=== PATIENT | male | born 1955 | race Caucasian/White ===

== ENCOUNTER → 2023-05-12 | Outpatient (CLI) | payer MEDICARE ==
[2023-05-12 09:52] LABS: African American GFR (CKD) >90 (>60 ml/min/1.73 sqM); Blood Urea Nitrogen 20 mg/dL (9-20); Non-African American GFR(CKD) 84 (>60 ml/min/1.73 sqM)
--- NOTE | 2023-05-12 10:46 | CT ---
EXAMINATION TYPE: CT urogram wo/w con CT DLP: 1679.9 mGycm, Automated exposure control for dose reduction was used. DATE OF EXAM: 05/12/2023 10:36 AM COMPARISON: None CLINICAL INDICATION:Male, 68 years old with history of R31.0 gross hematuria; PHH, Gross hematuria TECHNIQUE: Urogram of the abdomen and pelvis was performed before and after the administration of 100 cc of IV c ontrast Isovue 300 contrast. Delayed imaging was performed. Coronal and sagittal reformats were perfo rmed. One or more CT dose reduction strategies were utilized during this examination. 2D and 3D recon structions are performed to assist visualization of the urinary tract on a separate workstation. FINDINGS: GENITOURINARY: RIGHT KIDNEY AND URETER: Nonobstructive right renal calculus which may be vascular. No hydronephrosis or hydroureter. No renal mass or other lesions. No urothelial lesions: no filling defect, dilation, stricture or wall thickening. LEFT KIDNEY AND URETER: No calculi. No hydronephrosis or hydroureter. No solid enhancing lesion. 1.6 cm left superior pole cyst No urothelial lesions: no filling defect, dilation, stricture or wall thic kening. URINARY BLADDER: There is a large soft tissue filling defect emanating from the right lateral wall me asuring 4.7 x 3.7 cm (series 13, image 66). REPRODUCTIVE: Unremarkable. ABDOMEN LIVER: Unremarkable. GALLBLADDER AND BILE DUCTS: Unremarkable PANCREAS: Unremarkable. SPLEEN: Unremarkable. ADRENAL GLANDS: Unremarkable. STOMACH AND BOWEL: Distal colonic diverticulosis without evidence for acute diverticulitis. There is some hyperdense foci within the sigmoid colon likely representing surgical clips. No focal bowel wall thickening or stranding inflammatory changes. The appendix is within normal limits. No evidence of b owel obstruction. PERITONEUM: No evidence of pneumoperitoneum, free fluid, or adenopathy. VASCULATURE: Ectasia of the infrarenal abdominal aorta measuring up to 2.9 cm. 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 MUSCULOSKELETAL: Multilevel degenerative changes are present throughout the thoracolumbar spine. No a cute osseous abnormality. No aggressive osseous lesion. SOFT TISSUE/ABDOMINAL WALL: Unremarkable. LOWER CHEST: The visualized lung bases are clear. Mitral annulus and aortic valvular calcifications n oted.. IMPRESSION: 1. Urinary bladder mass measuring up to 4.7 cm. This is considered malignancy until proven otherwise . Direct visualization is recommended. 2. No CT evidence for metastatic disease within the abdomen pelvis. No suspicious renal lesion. 3. 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 4. Colonic diverticulosis without evidence for acute diverticulitis. A Yellow level critical message alert has been initiated for Toby Guo MD via the [employer] Critical Results System on 05/12/2023 10:43 AM. This message alert has been sent to Toby Guo MD via the preferences provided by the clinician for the receipt of Radiology Critical Findings. Mess age ID [id number].
== END | disposition home or self-care (01) ==
LOC: RADCTMAIN 08:57
PROVIDERS: ATTEND Urology
DX: N32.89 Other specified disorders of bladder (principal); K57.30 Diverticulosis of large intestine without perforation or abscess without bleeding; I77.811 Abdominal aortic ectasia; R31.0 Gross hematuria
CPT/HCPCS: 82565; 84520; 74178; 36415; 74400; Q9967

== ENCOUNTER 2024-03-14 07:16 | Day surgery (SDC) | payer MEDICARE ==
[~2024-03-14 07:16] MED LIST: ALPRAZolam 0.25 MG TAB PO PRN; ALPRAZolam 0.5 MG TAB PO PRN; HEPARIN SODIUM,PORCINE (1 ML) 2,500 UNIT in SODIUM CHLORIDE 0.9% 250 ML IRRIGATION PRN; HEPARIN SODIUM,PORCINE 10,000 UNIT in SODIUM CHLORIDE 0.9% 1,000 ML IRRIGATION PRN; NITROGLYCERIN SL TABS 0.4 MG TAB SUBLINGUAL PRN
[2024-03-14] MEDS: ASPIRIN 325 MG TAB PO ONE (07:37)
[2024-03-14] MEDS: SODIUM CHLORIDE 0.9% 1,000 ML in EMPTY BAG 1 BAG IV SCH (07:39)
[2024-03-14] MEDS: IV FLUID CONTINUATION 1,000 ML IV ONE (07:40)
[2024-03-14 07:54] LABS: Glucose,Whole Blood 146 mg/dL (70-110)
[2024-03-14 07:59] LABS: Basophils # (A) 0.1 k/uL (0-0.2); Basophils % (A) 1 %; Eosinophils # (A) 0.2 k/uL (0-0.7); Eosinophils % (A) 3 %; HCT 48.9 % (39.0-53.0); HGB 15.9 gm/dL (13.0-17.5); Lymphocytes # (A) 1.5 k/uL (1.0-4.8); Lymphocytes % (A) 22 %; MCH 29.6 pg (25.0-35.0); MCHC 32.5 g/dL (31.0-37.0); Mean Platelet Volume 8.5; Monocytes # (A) 0.6 k/uL (0-1.0); Monocytes % (A) 9 %; Neutrophils # (A) 4.3 k/uL (1.3-7.7); Neutrophils % (A) 62 %; Platelet Count 249 k/uL (150-450); RBC 5.38 m/uL (4.30-5.90); RDW 14.1 % (11.5-15.5); WBC 6.8 k/uL (3.8-10.6)
[2024-03-14 08:33] LABS: African American GFR (CKD) 83 (>60 ml/min/1.73 sqM); Anion Gap 9 mmol/L; Blood Urea Nitrogen 21 mg/dL (9-20); Calcium 8.9 mg/dL (8.4-10.2); Carbon Dioxide 21 mmol/L (22-30); Chloride 107 mmol/L (98-107); Glucose 150 mg/dL (74-99); Non-African American GFR(CKD) 72 (>60 ml/min/1.73 sqM); Potassium 4.3 mmol/L (3.5-5.1); Sodium 137 mmol/L (137-145)
[2024-03-14] MEDS ORDERED: VERAPAMIL 2.5 MG/ML 2 ML AMP ONE (08:40)
[2024-03-14] MEDS ORDERED: fentaNYL (PF) 50 MCG/ML 2 ML AMP ONE (08:40)
[2024-03-14] MEDS ORDERED: LIDOCAINE 1% INJ 10MG/ML (20 ML MDV) ONE (08:40)
[2024-03-14] MEDS ORDERED: HEPARIN SODIUM 1,000 UN/ML (10ML VL) ONE (08:40)
[2024-03-14 08:46] VITALS: RESP 16; TEMP 98.1
[2024-03-14] MEDS: fentaNYL (PF) 50 MCG/ML 2 ML AMP IVP ONE (08:59)
[2024-03-14] MEDS: MIDAZOLAM 2 MG/2 ML VIAL IVP ONE (08:59)
[2024-03-14] MEDS: LIDOCAINE 2% (PF) 20 MG/ML 2 ML VIAL SQ ONE (08:59)
[2024-03-14] MEDS: VERAPAMIL 2.5 MG/ML 4 ML VIAL INTRAARTER ONE (09:01)
[2024-03-14] MEDS: HEPARIN SODIUM 1,000 UN/ML (10ML VL) IVP ONE (09:04)
[2024-03-14] MEDS: IOPAMIDOL-370 200ML BTL INTRATHECA ONE (09:23)
--- NOTE | 2024-03-14 10:16 | CC ---
CARDIAC CATHETERIZATION REPORT INDICATION: Aortic stenosis. The patient is currently scheduled for an aortic valve replacement at [facility], who requested a left heart catheterization to be done locally. The patient understands risks, benefits, and alternatives and agreed to proceed with the procedure. PROCEDURE NOTE: After obtaining informed consent, left heart catheterization, coronary angiogram, and aortogram were performed via the right radial artery using standard Mak catheters. The patient tolerated the procedure well without any obvious immediate complications. The patient received moderate conscious sedation. Total sedation time was 26 minutes. A TR band will be used for hemostasis at the end of the procedure. FINDINGS: 1. Hemodynamics: Central aortic pressure is 128/68 mm. 2. Aortogram: Aortogram showed that the ascending aorta is not aneurysmally dilated. There is 2 to 3+ aortic regurgitation noted. 3. Angiographic Data: a.Right coronary artery: Right coronary artery is a large dominant vessel that shows a moderate area of stenosis in the proximal portion that is 50% stenosed. b.Left main coronary artery is a normal-sized vessel and is free of stenosis. Divides into left anterior descending coronary artery and circumflex coronary artery. c.Circumflex coronary artery and its branches are free of significant stenosis. LAD gives off a fair caliber diagonal branch that has a 70% ostial stenosis. CONCLUSION: Two-vessel coronary artery disease as described above in a patient who is to undergo aortic valve replacement. We will forward the angiographic data to the Cardiothoracic Surgeon at [facility] to decide on aortic valve replacement with or without surgical revascularization of the diagonal branch and the right coronary artery. MMODL / IJN: [id number] /
[2024-03-14 11:38] VITALS: BP 133/73; PULSE 73
== END 2024-03-14 13:26 | disposition home or self-care (01) ==
LOC: CATHCVL 07:16
PROVIDERS: ATTEND Internal Medicine Cardiovascular Disease
DX: I35.0 Nonrheumatic aortic (valve) stenosis (principal); I25.10 Atherosclerotic heart disease of native coronary artery without angina pectoris; E78.5 Hyperlipidemia, unspecified; Z87.891 Personal history of nicotine dependence; Z79.899 Other long term (current) drug therapy
CPT/HCPCS: 93458; 93567; 80048; 85025; J2250; J3010; J1644; J2001; Q9967

== ENCOUNTER 2024-12-13 07:10 | Inpatient (IN) | payer MEDICARE ==
--- NOTE | 2024-12-13 07:26 | ED ---
General Adult HPI - General Chief complaint: Chest Pain Stated complaint: chest pain Time Seen by Provider: 12/13/24 07:12 Source: patient, RN notes reviewed Mode of arrival: ambulatory Limitations: no limitations - History of Present Illness Initial comments: Patient is a 69-year-old male present to the emergency department with concern with chest discomfort. Onset of symptoms was middle of the night. Discomfort is somewhat severe rated 8 or 9/10. Discomfort is difficult to describe. Discomfort is lower chest. Patient states there is also some discomfort of the back and upper abdomen. No history of similar symptoms previously. No dyspnea. Patient has had nausea and did vomit a couple times. No diaphoresis. No history of any previous cardiac disease. - Related Data Home Medications Medication Instructions Recorded Confirmed Atorvastatin [Lipitor] 20 mg PO HS 12/20/22 12/13/24 Multivit,Calc,Min/FA/K1/Lycop 1 tab PO DAILY 12/20/22 12/13/24 [One-A-Day Men's Complete Tab] metFORMIN HCL 500 mg PO BID 12/20/22 12/13/24 Aspirin EC [Ecotrin Low Dose] 81 mg PO DAILY 12/13/24 12/13/24 Metoprolol Succinate (ER) [Toprol 50 mg PO DAILY 12/13/24 12/13/24 Xl] Semaglutide [Ozempic] 0.25 mg SQ WE 12/13/24 12/13/24 Allergies Allergy/AdvReac Type Severity Reaction Status Date / Time No Known Allergies Allergy Verified 12/13/24 08:27 Review of Systems ROS Statement: Those systems with pertinent positive or pertinent negative responses have been documented in the HPI. ROS Other: All systems not noted in ROS Statement are negative. Constitutional: Denies: fever Eyes: Denies: eye pain ENT: Denies: ear pain Respiratory: Denies: dyspnea Cardiovascular: Reports: chest pain Musculoskeletal: Reports: back pain Past Medical History Past Medical History: Cancer, Diabetes Mellitus, Hyperlipidemia Additional Past Medical History / Comment(s): hx melanoma on face, tingling in feet, covid 09/2021, will need aortic valve done soon, will be done @ [facility], recent hx. bladder cancer-had surg. & chemo instillation into bladder History of Any Multi-Drug Resistant Organisms: None Reported Additional Past Surgical History / Comment(s): colonoscopy, melanoma removed, bladder surg. to remove cancer Past Anesthesia/Blood Transfusion Reactions: Previous Problems w/ Anesthesia Additional Past Anesthesia/Blood Transfusion Reaction / Comment(s): woke up swinging after bladder surg. recently Past Psychological History: No Psychological Hx Reported Smoking Status: Former smoker, Vaper Past Alcohol Use History: None Reported Past Drug Use History: None Reported - Past Family History Mother Family Medical History: Congestive Heart Failure (CHF) Father Family Medical History: Cancer Additional Family Medical History / Comment(s): esophagus General Exam Limitations: no limitations General appearance: alert, in no apparent distress Head exam: Present: normocephalic Eye exam: Present: normal appearance Neck exam: Present: normal inspection Respiratory exam: Present: normal lung sounds bilaterally. Absent: chest wall tenderness Cardiovascular Exam: Present: regular rate, normal rhythm, normal heart sounds Expanded Peripheral pulses: 2+: Radial (R), Radial (L), Dorsalis Pedis (R), Dorsalis Pedis (L) GI/Abdominal exam: Present: soft. Absent: distended, tenderness, guarding Extremities exam: Present: normal inspection. Absent: pedal edema, calf tenderness Back exam: Present: normal inspection. Absent: tenderness Neurological exam: Present: alert Psychiatric exam: Present: normal affect, normal mood Skin exam: Present: normal color Course Vital Signs 12/13/24 12/13/24 12/13/24 07:11 07:30 08:10 Temperature 97.3 F L Pulse Rate 69 89 75 Respiratory 20 19 19 Rate Blood Pressure 151/79 111/63 116/48 O2 Sat by Pulse 99 95 97 Oximetry 12/13/24 08:30 Temperature Pulse Rate 71 Respiratory 19 Rate Blood Pressure 102/66 O2 Sat by Pulse 97 Oximetry EKG Findings - EKG Results: EKG: interpreted by ERMD, sinus rhythm, normal axis, normal QRS, normal ST/T Medical Decision Making - Medical Decision Making Was pt. sent in by a medical professional or institution (, PA, SIGN LANGUAGE TRANSLATOR, urgent care, hospital, or fdc...) When possible be specific @ -No Did you speak to anyone other than the patient for history (EMS, parent, family, police, friend...)? What history was obtained from this source @ -No Did you review nursing and triage notes (agree or disagree)? Why? @ -I reviewed and agree with nursing and triage notes Were old charts reviewed (outside hosp., previous admission, EMS record, old EKG, old radiological studies, urgent care reports/EKG's, fdc records)? Report findings @ -No old charts were reviewed Differential Diagnosis (chest pain, altered mental status, abdominal pain women, abdominal pain men, vaginal bleeding, weakness, fever, dyspnea, syncope, headache, dizziness, GI bleed, back pain, seizure, CVA, palpatations, mental hea lth, musculoskeletal)? @ -Differential Chest Pain: Stable Angina, Unstable Angina, STEMI, NSTEMI Aortic Dissection, Pneumothorax, Musculoskeletal, Esophageal Spasm GERD, Cholecystitis, Pancreatitis, Zoster, this is not meant to be an all-inclusive list. EKG interpreted by me (3pts min.). @ -As above X-rays interpreted by me (1pt min.). @ -Chest and abdominal x-ray do not reveal acute abnormality. Chest x-ray does not show previous valve surgery CT interpreted by me (1pt min.). @ -None done U/S interpreted by me (1pt. min.). @ -None done What testing was considered but not performed or refused? (CT, X-rays, U/S, labs)? Why? @ -Ultrasound gallbladder ordered. D-dimer ordered and still pending What meds were considered but not given or refused? Why? @ -None Did you discuss the management of the patient with other professionals (professionals i.e. , PA, SIGN LANGUAGE TRANSLATOR, lab, RT, psych nurse, social media assistant, driver supervisor, teacher, environmental health officer, cyanide case hardener)? Give summary @ -Dr. Rodriguez to admit his patient, he states he will see his patient today. Was smoking cessation discussed for >3mins.? @ -No Was critical care preformed (if so, how long)? @ -No Were there social determinants of health that impacted care today? How? (Homelessness, low income, unemployed, alcoholism, drug addiction, transportation, low edu. Level, literacy, decrease access to med. care, correction, rehab)? @ -No Was there de-escalation of care discussed even if they declined (Discuss DNR or withdrawal of care, Hospice)? DNR status @ -No What co-morbidities impacted this encounter? (DM, HTN, Smoking, COPD, CAD, Ca ncer, CVA, ARF, Chemo, Hep., AIDS, mental health diagnosis, sleep apnea, morbid obesity)? @ -History of diabetes, history of heart valve disease Was patient admitted / discharged? Hospital course, mention meds given and route, prescriptions, significant lab abnormalities, going to OR and other pert inent info. @ -Patient presents with chest discomfort. No improvement with aspirin and nitroglycerin. Nausea improved with Zofran. Patient still having discomfort. Patient will be admitted for further evaluation. Ultrasound of the gallbladder ordered. Admission orders written. Patient reevaluated and updated. Undiagnosed new problem with uncertain prognosis? @ -No Drug Therapy requiring intensive monitoring for toxicity (Heparin, Nitro, Insulin, Cardizem)? @ -No Were any procedures done? @ -No Diagnosis/symptom? @ -Chest pain Acute, or Chronic, or Acute on Chronic? @ -Acute Uncomplicated (without systemic symptoms) or Complicated (systemic symptoms)? @ -Default Side effects of treatment? @ -No Exacerbation, Progression, or Severe Exacerbation? @ -No Poses a threat to life or bodily function? How? (Chest pain, [place], [place], pneumonia, PE, COPD, DKA, ARF, appy, cholecystitis, CVA, Diverticulitis, Homicidal, Suicidal, threat to staff... and all critical care pts) @ -Threat to cardiac function - Lab Data Result diagrams: 12/13/24 07:40 12/13/24 07:40 Lab Results 12/13/24 12/13/24 12/13/24 Range/Units 07:40 07:40 07:40 WBC 9.4 (3.8-10.6) k/uL RBC 5.21 (4.30-5.90) m/uL Hgb 16.1 (13.0-17.5) gm/dL Hct 48.4 (39.0-53.0) % MCV 92.9 (80.0-100.0) fL MCH 31.0 (25.0-35.0) pg MCHC 33.4 (31.0-37.0) g/dL RDW 13.3 (11.5-15.5) % Plt Count 220 (150-450) k/uL MPV 8.2 Neutrophils % 83 % Lymphocytes % 11 % Monocytes % 4 % Eosinophils % 1 % Basophils % 1 % Neutrophils # 7.8 H (1.3-7.7) k/uL Lymphocytes # 1.0 (1.0-4.8) k/uL Monocytes # 0.3 (0-1.0) k/uL Eosinophils # 0.1 (0-0.7) k/uL Basophils # 0.1 (0-0.2) k/uL Sodium 136 L (137-145) mmol/L Potassium 4.4 (3.5-5.1) mmol/L Chloride 101 (98-107) mmol/L Carbon Dioxide 20 L (22-30) mmol/L Anion Gap 15 mmol/L BUN 23 H (9-20) mg/dL Creatinine 1.20 (0.66-1.25) mg/dL Est GFR (CKD-EPI)AfAm 71 (>60 ml/min/1.73 sqM) Est GFR (CKD-EPI)NonAf 62 (>60 ml/min/1.73 sqM) Glucose 210 H (74-99) mg/dL Calcium 9.3 (8.4-10.2) mg/dL Magnesium 2.1 (1.6-2.3) mg/dL Total Bilirubin 0.8 (0.2-1.3) mg/dL AST 30 (17-59) U/L ALT 44 (4-49) U/L Alkaline Phosphatase 100 (38-126) U/L Troponin I <0.012 (0.000-0.034) ng/mL Total Protein 8.3 H (6.3-8.2) g/dL Albumin 4.9 (3.5-5.0) g/dL Amylase 44 (30-110) U/L Lipase 48 (23-300) U/L Disposition Clinical Impression: Chest pain Disposition: ADMITTED IP TO THIS HOSP Is patient prescribed a controlled substance at d/c from ED?: No Referrals: Wang Rodriguez MD [Primary Care Provider] - 1-2 days Time of Disposition: 08:36
[2024-12-13] MEDS: ASPIRIN 81 MG PO STA (07:42)
[2024-12-13] MEDS: ONDANSETRON 4 MG/2 ML VIAL IVP STA (07:43)
[2024-12-13] MEDS: NITROGLYCERIN SL TABS 0.4 MG TAB SUBLINGUAL STA ×3 (07:45→08:32)
[2024-12-13 07:53] LABS: Basophils # (A) 0.1 k/uL (0-0.2); Basophils % (A) 1 %; Eosinophils # (A) 0.1 k/uL (0-0.7); Eosinophils % (A) 1 %; HCT 48.4 % (39.0-53.0); HGB 16.1 gm/dL (13.0-17.5); Lymphocytes % (A) 11 %; MCHC 33.4 g/dL (31.0-37.0); MCV 92.9 fL (80.0-100.0); Mean Platelet Volume 8.2; Monocytes # (A) 0.3 k/uL (0-1.0); Monocytes % (A) 4 %; Neutrophils # (A) 7.8 k/uL (1.3-7.7); Neutrophils % (A) 83 %; Platelet Count 220 k/uL (150-450); RBC 5.21 m/uL (4.30-5.90); RDW 13.3 % (11.5-15.5); WBC 9.4 k/uL (3.8-10.6)
[2024-12-13 08:11] LABS: ALT 44 U/L (4-49); AST 30 U/L (17-59); African American GFR (CKD) 71 (>60 ml/min/1.73 sqM); Albumin 4.9 g/dL (3.5-5.0); Alkaline Phosphatase 100 U/L (38-126); Amylase 44 U/L (30-110); Anion Gap 15 mmol/L; Blood Urea Nitrogen 23 mg/dL (9-20); Calcium 9.3 mg/dL (8.4-10.2); Carbon Dioxide 20 mmol/L (22-30); Chloride 101 mmol/L (98-107); Glucose 210 mg/dL (74-99); Lipase 48 U/L (23-300); Magnesium 2.1 mg/dL (1.6-2.3); Non-African American GFR(CKD) 62 (>60 ml/min/1.73 sqM); Potassium 4.4 mmol/L (3.5-5.1); Sodium 136 mmol/L (137-145); Total Bilirubin 0.8 mg/dL (0.2-1.3); Total Protein 8.3 g/dL (6.3-8.2)
[2024-12-13 08:22] LABS: INR 1.1 (<1.2); Partial Thromboplastin Time 22.8 sec (22.0-30.0); Prothrombin Time 11.7 sec (10.0-12.5)
--- NOTE | 2024-12-13 08:23 | XR ---
EXAMINATION TYPE: XR chest 2V DATE OF EXAM: 12/13/2024 8:17 AM COMPARISON: None TECHNIQUE: XR chest 2V Frontal and lateral views of the chest. CLINICAL INDICATION:Male, 69 years old with history of Chest Pain; FINDINGS: Lungs/Pleura: There is no evidence of pleural effusion, focal consolidation, or pneumothorax. Pulmonary vascularity: Unremarkable. Heart/mediastinum: Cardiomediastinal silhouette is unremarkable. Atherosclerotic calcifications are seen in the aorta. Cardiac valvular prosthesis. Musculoskeletal: No acute osseous pathology. Midline sternotomy wires are noted. IMPRESSION: No acute cardiopulmonary disease/process. [facility], , 12/13/2024 8:21 AM
--- NOTE | 2024-12-13 08:24 | XR ---
EXAMINATION TYPE: XR abdomen 1V DATE OF EXAM: 12/13/2024 COMPARISON: CT urogram 05/12/2023 HISTORY: Pain TECHNIQUE: Single upright KUB image of the abdomen is obtained FINDINGS: Small bowel demonstrates no evidence for dilatation or air fluid levels. Gas and fecal material is seen in non-distended colon. No convincing evidence for pneumoperitoneum. No unusual calcifications. The lung bases are clear. No acute osseous abnormality. Sternotomy wires. IMPRESSION: Overall nonobstructive bowel gas pattern. [facility], , 12/13/2024 8:22 AM
[2024-12-13] MEDS: MORPHINE SULFATE 4 MG/ML SYRINGE IVP STA ×2 (08:33→11:21)
[2024-12-13] MEDS: FAMOTIDINE 20 MG/2 ML VIAL IV STA (08:33)
[2024-12-13] MEDS ORDERED: NITROGLYCERIN SL TABS 0.4 MG TAB SUBLINGUAL PRN (08:36)
--- NOTE | 2024-12-13 09:13 | US ---
EXAMINATION TYPE: US gallbladder DATE OF EXAM: 12/13/2024 COMPARISON: Abdominal radiograph 12/13/2024, CT angiogram 05/12/2023 CLINICAL INDICATION: Male, 69 years old with history of pain; N/V. TECHNIQUE: Grayscale and color Doppler imaging of the right upper quadrant was performed. FINDINGS: EXAM MEASUREMENTS: Liver Length: 16.6 cm Gallbladder Wall: 0.1 cm CBD: 0.4 cm Right Kidney: 12.1 x 5.1 x 5.5 cm Pancreas: Tail obscured by overlying bowel gas Liver: Increased attenuation, decreased visualization of vessels suggestive of fatty infiltrate. Ec hogenic in appearance. Gallbladder: Enlarged in size. Two echogenic foci seen with shadow with largest = 1.0 cm. Evidence for sonographic Bray's sign: neg CBD: wnl Right Kidney: No hydronephrosis or masses seen The visualized portions of the pancreas unremarkable. The liver demonstrates diffusely increased echo genicity which limits evaluation for focal small masses. No gross evidence of mass. No surface nodula rity. The gallbladder is distended with 2 calculi within the neck. No wall thickening or surrounding fluid. Negative sonographic Bray's sign. Common bile duct is within normal limits. Right kidney dem onstrates no hydronephrosis, shadowing calculus or solid mass. IMPRESSION: 1. Cholelithiasis without ultrasound evidence for acute cholecystitis. 2. Hepatic steatosis. [facility], , 12/13/2024 9:10 AM
[2024-12-13] MEDS: NITROGLYCERIN OINT 1 INCH/GM PACKET TOPICAL SCH (09:51)
[2024-12-13] MEDS: metFORMIN 500 MG TAB PO SCH (09:51)
[2024-12-13] MEDS: MULTIVITAMINS, THERA 1 EACH TAB PO SCH (09:51)
[2024-12-13] MEDS: METOPROLOL SUCCINATE (ER) 50 MG TAB.ER.24H PO SCH (09:51)
--- NOTE | 2024-12-13 10:33 | CT ---
EXAMINATION TYPE: CT angio thor/abd CT DLP: 1513.3 mGycm, Automated exposure control for dose reduction was used. DATE OF EXAM: 12/13/2024 10:19 AM COMPARISON: CT urogram 05/12/2023, chest and abdominal radiographs 12/13/2024, gallbladder ultrasound . CLINICAL INDICATION:Male, 69 years old with history of cp, abp; PHH, chest and abd pain TECHNIQUE: Dissection protocol: Multiple axial CT images of the chest and abdomen were obtained prior and to the administration of IV contrast. 3-D reformats and maximum intensity projection format were performed on a separate workstation. Then the abdomen was scanned after administration of 100 cc of Isovue 370 IV contrast. FINDINGS: ARTERIAL VASCULATURE: Mild atherosclerotic calcification of the aorta and its branches. Conventional three-vessel aortic arch. Great arch vessels are patent with normal course and caliber. No evidence f or thoracic aneurysm. No evidence for intramural hematoma or dissection. No abdominal aortic aneurysm . Ectasia of the infrarenal distal abdominal aorta measuring up to 2.9 cm. The SMA and celiac axis ar e widely patent. There are 2 right renal arteries which are widely patent with mild atherosclerotic c alcification at its origin. The single left main renal artery is widely patent. The ISIDRO is widely pat ent. Bilateral fusiform common iliac artery aneurysms with the right measuring 2.5 cm and the left me asuring 2.2 cm. Mild to moderate atherosclerotic plaque within the bilateral common iliac arteries ex tending into their external and internal iliac arteries. PULMONARY ARTERIAL VASCULATURE: Normal caliber. No evidence of filling defect to suggest pulmonary em bolus. Lungs/pleura: No pleural effusion, pneumothorax, focal consolidation. Medial right middle lobe linear atelectasis. No suspicious pulmonary nodule or mass. Heart: Normal size. Post surgical changes from aortic valvular replacement. Dense mitral annulus calc ifications. Small coronary calcifications. Mediastinum: No gross evidence of adenopathy. Lower Neck: No significant findings. Soft tissues: Bilateral gynecomastia. Abdomen: Liver: Diffusely hypoattenuating. No focal lesion. Gallbladder and Bile ducts: Distended gallbladder without surrounding inflammatory changes. No biliar y ductal dilatation. Pancreas: Unremarkable. Spleen: Unremarkable. Adrenal glands: Unremarkable. Kidneys and Ureters: No hydronephrosis or renal calculi. The kidneys enhance symmetrically. Minimal b ilateral perinephric fat stranding. Left renal cyst measuring 1.4 cm. Stomach and Bowel: Small hiatal hernia. No focal bowel wall thickening or surrounding inflammatory ch anges. Distal colonic diverticulosis without visualized acute diverticulitis. The appendix is within normal limits. No evidence of bowel obstruction. Peritoneum: No evidence of pneumoperitoneum, free fluid, or adenopathy. Abdominal wall/soft tissues: Unremarkable. Musculoskeletal: The osseous structures appear intact. Sternotomy wires. Multilevel degenerative disc disease of the thoracolumbar spine. Most pronounced involving the lumbar spine. IMPRESSION: 1. No evidence for aortic dissection. 2. Stable ectasia of the infrarenal distal abdominal aorta measuring 2.9 cm. 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 3. Mild atherosclerotic disease involving the aorta and its branches. 3. Colonic diverticulosis without evidence of acute diverticular disease. 4. Hepatic steatosis. [facility], , 12/13/2024 10:31 AM
--- NOTE | 2024-12-13 13:14 | CA ---
Transthoracic Echo Report Name: Juan Monterroso Age: 69 Gender: M : 1955 Exam Date: 12/13/2024 11:31 Exam Location: [facility] Ht (in): 69 Wt (lb): 227 Ordering Physician: Yaw Anderson DO Attending/Referring Phys: Sports Commentator Yesica Acuna RDCS Procedure CPT: Indications: CP Cardiac Hx: AO valve replaced Technical Quality: Good Contrast 1: Total Dose (mL): Contrast 2: Total Dose (mL): MEASUREMENTS (Male / Female) Normal Values 2D ECHO LV Diastolic Diameter PLAX 4.5 cm 4.2 - 5.9 / 3.9 - 5.3 cm LV Systolic Diameter PLAX 2.6 cm IVS Diastolic Thickness 1.1 cm 0.6 - 1.0 / 0.6 - 0.9 cm LVPW Diastolic Thickness 1.1 cm 0.6 - 1.0 / 0.6 - 0.9 cm LV Relative Wall Thickness 0.5 RV Internal Dim ED PLAX 3.4 cm LVOT Diameter 2.4 cm LA Systolic Diameter LX 4.3 cm 3.0 - 4.0 / 2.7 - 3.8 cm LV Diastolic Volume MOD 4C 81.3 cm??? LV Systolic Volume MOD 4C 34.9 cm??? LV Ejection Fraction MOD 4C 57.1 % LV Cardiac Index MOD 4C 1818.8 cm???/min???m??? LV Diastolic Length 4C 8.0 cm LV Systolic Length 4C 6.9 cm LV Diastolic Volume MOD 2C 78.5 cm??? LV Systolic Volume MOD 2C 32.0 cm??? LV Ejection Fraction MOD 2C 59.2 % LV Cardiac Index MOD 2C 1819.1 cm???/min???m??? LV Diastolic Length 2C 8.7 cm LV Systolic Length 2C 7.1 cm LA Volume 68.8 cm??? 18 - 58 / 22 - 52 cm??? LA Volume Index 30.3 cm???/m??? 16 - 28 cm???/m??? M-MODE Aortic Root Diameter MM 3.5 cm DOPPLER AV Peak Velocity 175.0 cm/s AV Peak Gradient 12.2 mmHg AV Mean Velocity 120.0 cm/s AV Mean Gradient 6.6 mmHg AV Velocity Time Integral 33.8 cm LVOT Peak Velocity 129.8 cm/s LVOT Peak Gradient 6.7 mmHg LVOT Velocity Time Integral 32.3 cm LVOT Stroke Volume 145.9 cm??? LVOT Stroke Volume Index 67.0 ml/m??? LVOT Cardiac Index 5712.1 cm???/min???m??? AV Area Cont Eq vti 4.3 cm??? AV Area Cont Eq pk 3.4 cm??? MV Area PHT 3.9 cm??? Mitral E Point Velocity 127.1 cm/s Mitral A Point Velocity 156.6 cm/s Mitral E to A Ratio 0.8 MV Deceleration Time 194.7 ms FINDINGS Left Ventricle Left ventricular ejection fraction is estimated at 55-60 %. Left ventricular cavity size normal. Mildly increased septal wall thickness. No obvious regional wall motion abnormalities. Right Ventricle Mild right ventricular dilatation. Unable to estimate the right ventricular systolic pressure. Right Atrium Normal right atrial size. No right atrial thrombus or mass seen. Left Atrium Mildly increased left atrial diameter. Mildly increased left atrial volume. Mildly increased left atrial area. Mitral Valve Mitral valve thickened. Mitral annular calcification. Trace to mild mitral regurgitation. Aortic Valve Normally functioning bioprosthetic aortic valve without stenosis with a peak velocity of 1.8 m/s, peak gradient 12 mmHg, mean gradient 7 mmHg, and estimated aortic valve area of 3.4 cm???. Tricuspid Valve Structurally normal tricuspid valve. No tricuspid stenosis, regurgitation or prolapse. Pulmonic Valve Structurally normal pulmonic valve. No pulmonic regurgitation. Pericardium No pericardial effusion. Aorta Normal size aortic root and proximal ascending aorta. CONCLUSIONS Normal biventricular systolic function Mild RV enlargement The pulmonary artery systolic pressure was not calculated Bioprosthetic aortic valve with acceptable gradient of 7 mmHg. No regurgitation Previewed by: Dr. Isaias Roy MD (Electronically Signed) Final Date: 13 December 2024 13:13
--- NOTE | 2024-12-13 14:02 | P.CRDCN ---
History of Present Illness Consult date: 12/13/24 Consult reason: chest pain History of present illness: This is a 69-year-old male patient of Dr. Morel with past medical history of diabetes mellitus type 2, dyslipidemia, aortic valve stenosis status post aortic valve replacement at [facility] May 2024, history of tobacco use and dependence. We have been asked to evaluate the patient for chest pain. Patient states he came into the hospital due to pain across his upper abdomen. He denies chest pain no chest pressure. He denies shortness of breath. No lightheadedness or dizziness. No fever or chills. Blood pressure 135/66, heart rate 82, pulse ox 96% on room air. Patient is seen today in the emergency center waiting for a bed on the observation unit. -EKG: Sinus rhythm with no acute ST-T wave changes. -Chest x-ray: No acute process. -Abdominal x-ray: Nonobstructive bowel gas pattern. -Gallbladder ultrasound: Cholelithiasis without acute cholecystitis. Hepatic steatosis. -Chest and abdominal CTA: No aortic dissection. Stable ectasia of the infrarenal distal abdominal aorta measuring 2.9 cm. 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 Mild atherosclerotic disease involving the aorta and its branches. Colonic diverticulosis. Hepatic steatosis. -Echocardiogram reveals EF of 55 to 60%, mild RV enlargement. Pulmonary artery systolic pressure not calculated. Bioprosthetic aortic valve with acceptable gradient of 7 mmHg. No regurgitation. -Laboratory studies: CBC, INR within normal limits. D-dimer 1.13. Sodium 136, potassium 4.4, BUN 23 creatinine 1.2. Troponin negative x 2. -Home cardiac medications: Aspirin 81 mg daily, atorvastatin 20 mg at bedtime, Toprol XL 50 mg daily, also on Ozempic. Review Of Systems: At the time of my exam: CONSTITUTIONAL: Denies fever or chills. HEENT: Denies blurred vision, vision changes, or eye pain. Denies hemoptysis CARDIOVASCULAR: Denies chest pain. Denies orthopnea. Denies PND. Denies palpitations RESPIRATORY: Denies shortness of breath. GASTROINTESTINAL: Reports abdominal pain. Denies nausea or vomiting. HEMATOLOGIC: Denies bleeding disorders. GENITOURINARY: Denies any blood in urine. SKIN: Denies puritis. Denies rash. Physical examination: Gen: This is a 69-year-old male in no acute distress VS: reviewed HEENT: Head is atraumatic, normocephalic. Pupils equal, round. Sclerae is anicteric. NECK: Supple. No JVD. LUNGS: Clear to auscultation. No wheezes or rhonchi. No intercostal retractions. HEART: Regular rate and rhythm. No murmur. ABDOMEN: Soft No tenderness. EXTREMITIES: No pedal edema. No calf tenderness. NEUROLOGICAL: Patient is awake, alert and oriented x3. Assessment: Abdominal pain No complaints of chest pain History of aortic stenosis status post valve replacement May 2024 at [facility] Diabetes mellitus type 2 Dyslipidemia Plan: Resume patient's home cardiac medications Discontinue Nitropaste No further cardiac workup is warranted at this time. Cardiology will sign off this case and follow on an as-needed basis. Please rec onsult for any new concerns. Patient may follow-up in the office in one to 2 weeks. Thank you kindly for this consultation. Nurse practitioner note has been reviewed, I agree with documented findings and plan of care. Patient was seen and examined. Past Medical History Past Medical History: Cancer, Diabetes Mellitus, Hyperlipidemia Additional Past Medical History / Comment(s): hx melanoma on face, tingling in feet, covid 09/2021, will need aortic valve done soon, will be done @ [facility], recent hx. bladder cancer-had surg. & chemo instillation into bladder History of Any Multi-Drug Resistant Organisms: None Reported Additional Past Surgical History / Comment(s): colonoscopy, melanoma removed, bladder surg. to remove cancer Past Anesthesia/Blood Transfusion Reactions: Previous Problems w/ Anesthesia Additional Past Anesthesia/Blood Transfusion Reaction / Comment(s): woke up swinging after bladder surg. recently Past Psychological History: No Psychological Hx Reported Smoking Status: Former smoker, Vaper Past Alcohol Use History: None Reported Past Drug Use History: None Reported - Past Family History Mother Family Medical History: Congestive Heart Failure (CHF) Father Family Medical History: Cancer Additional Family Medical History / Comment(s): esophagus Medications and Allergies Home Medications Medication Instructions Recorded Confirmed Type Atorvastatin [Lipitor] 20 mg PO HS 12/20/22 12/13/24 History Multivit,Calc,Min/FA/K1/Lycop 1 tab PO DAILY 12/20/22 12/13/24 History [One-A-Day Men's Complete Tab] metFORMIN HCL 500 mg PO BID 12/20/22 12/13/24 History Aspirin EC [Ecotrin Low Dose] 81 mg PO DAILY 12/13/24 12/13/24 History Metoprolol Succinate (ER) [Toprol 50 mg PO DAILY 12/13/24 12/13/24 History Xl] Semaglutide [Ozempic] 0.25 mg SQ WE 12/13/24 12/13/24 History Allergies Allergy/AdvReac Type Severity Reaction Status Date / Time No Known Allergies Allergy Verified 12/13/24 08:27 Physical Exam Vitals: Vital Signs Temp Pulse Resp BP Pulse Ox 12/13/24 09:53 82 20 135/66 96 12/13/24 08:30 71 19 102/66 97 12/13/24 08:10 75 19 116/48 97 12/13/24 07:30 89 19 111/63 95 12/13/24 07:11 97.3 F L 69 20 151/79 99 Intake and Output 12/12/24 12/13/24 12/13/24 22:59 06:59 14:59 Other: Weight 102.965 kg Results 12/13/24 07:40 12/13/24 07:40 Cardiac Enzymes 12/13/24 12/13/24 12/13/24 Range/Units 07:40 07:40 10:29 AST 30 (17-59) U/L Troponin I <0.012 <0.012 (0.000-0.034) ng/mL Coagulation 12/13/24 Range/Units 07:40 PT 11.7 (10.0-12.5) sec APTT 22.8 (22.0-30.0) sec CBC 12/13/24 Range/Units 07:40 WBC 9.4 (3.8-10.6) k/uL RBC 5.21 (4.30-5.90) m/uL Hgb 16.1 (13.0-17.5) gm/dL Hct 48.4 (39.0-53.0) % Plt Count 220 (150-450) k/uL Comprehensive Metabolic Panel 12/13/24 Range/Units 07:40 Sodium 136 L (137-145) mmol/L Potassium 4.4 (3.5-5.1) mmol/L Chloride 101 (98-107) mmol/L Carbon Dioxide 20 L (22-30) mmol/L BUN 23 H (9-20) mg/dL Creatinine 1.20 (0.66-1.25) mg/dL Glucose 210 H (74-99) mg/dL Calcium 9.3 (8.4-10.2) mg/dL AST 30 (17-59) U/L ALT 44 (4-49) U/L Alkaline Phosphatase 100 (38-126) U/L Total Protein 8.3 H (6.3-8.2) g/dL Albumin 4.9 (3.5-5.0) g/dL Current Medications Generic Name Dose Route Start Last Admin Trade Name Freq PRN Reason Stop Dose Admin Aspirin 325 mg 12/14/24 09:00 Aspirin 325 Mg Tab PO DAILY [facility] Atorvastatin Calcium 20 mg 12/13/24 21:00 Atorvastatin 20 Mg Tab PO HS [facility] Metformin HCl 500 mg 12/13/24 09:00 12/13/24 09:51 Metformin 500 Mg Tab PO Not Given BID-W/MEALS [facility] Metoprolol Succinate 50 mg 12/13/24 09:00 12/13/24 09:51 Metoprolol Succinate (Er) 50 Mg Tab.Er.24h PO Not Given DAILY [facility] Multivitamins 1 each 12/13/24 09:00 12/13/24 09:51 Multivitamins, Thera 1 Each Tab PO Not Given DAILY [facility] Nitroglycerin 1 inch 12/13/24 08:45 12/13/24 11:02 Nitroglycerin Oint 1 Inch/Gm Packet TOPICAL Not Given Q6HR MOHAN Nitroglycerin 0.4 mg 12/13/24 08:36 Nitroglycerin Sl Tabs 0.4 Mg Tab SUBLINGUAL Q5M PRN Chest Pain Intake and Output 12/12/24 12/13/24 12/13/24 22:59 06:59 14:59 Other: Weight 102.965 kg Patient Weight 12/14/24 06:59 Weight 102.965 kg 12/13/24 07:40 12/13/24 07:40
[2024-12-13] MEDS: SODIUM CHLORIDE 0.9% 1,000 ML IV SCH (14:48)
[2024-12-13] MEDS: HYDROmorphone 1 MG/ML 1 ML SYRINGE IVP PRN (14:49)
--- NOTE | 2024-12-13 15:06 | P.GSCN ---
History of Present Illness Consult date: 12/13/24 History of present illness: CHIEF COMPLAINT: Abdominal pain HISTORY OF PRESENT ILLNESS: This is a 69-year-old male who presented to hospital complaints of epigastric abdominal pain and pain across the upper abdomen that started last night after eating a greasy chicken dinner. Patient also was having vomiting this morning. Patient denies having symptoms like this before. He had ultrasound completed that had reported a distended gallbladder and gallstones. Patient also seen by cardiology for chest pain. Patient denies any chest pain or shortness of breath. He had an aortic valve replacement in May 2024 at [facility]. He also has a known history of bladder cancer with surgery and chemo insulation into the bladder. The last treatment was about 6 months ago. Patient denies any fever chills or sweats. Denies being on any blood thinners. He is a diabetic. Patient reports he is still having pain even after morphine given. PAST MEDICAL HISTORY: See below PAST SURGICAL HISTORY: See below MEDICATIONS: See below ALLERGIES: See below SOCIAL HISTORY: No illicit drug use. REVIEW OF SYSTEMS: CONSTITUTIONAL: Denies fever or chills. HEENT: Denies blurred vision, vision changes, or eye pain. Denies hemoptysis CARDIOVASCULAR: Denies chest pain or pressure. RESPIRATORY: No shortness of breath. GASTROINTESTINAL: See HPI for pertinent findings HEMATOLOGIC: Denies bleeding disorders. GENITOURINARY: Denies any blood in urine or increased urinary frequency. SKIN: Denies pruitis. Denies rash. PHYSICAL EXAM: VITAL SIGNS: Reviewed GENERAL: Well-developed in no acute distress. HEENT: No sclera icterus. Extraocular movements grossly intact. Moist buccal mucosa. Head is atraumatic, normocephalic. No nasal drainage. ABDOMEN: Soft. Nondistended. Tenderness with palpation of the epigastric right upper quadrant and left upper quadrant. No rebound or guarding noted. NEUROLOGIC: Alert and oriented. Cranial nerves II through XII grossly intact. LABORATORY DATA: WBC 9.4 Hgb 16.1 platelets 220 INR 1.1 D-dimer 1.13 Sodium 136 potassium 4.4 creatinine 1.2 LFTs normal Troponin negative x 2 Lipase 48 IMAGING: Gallbladder ultrasound reports cholelithiasis and distended gallbladder without ultrasound evidence of acute cholecystitis. Hepatic steatosis Chest and abdomen CTA: Reports no PE. No evidence of aortic stenosis. Stable ectasia of the infrarenal distal abdominal aorta measuring 2.9 cm. Stable bilateral common iliac artery aneurysms. Mild atherosclerotic disease involving the aorta and its branches. Colonic diverticulosis without acute diverticulitis. Hepatic steatosis. ASSESSMENT: 1. Symptomatic cholelithiasis. Gallbladder ultrasound reporting cholelithiasis and distended gallbladder 2. History of aortic valve replacement in May 2024 PLAN: -Further recommendations forthcoming per surgeon -Continue antiemetics -Dilaudid added for pain -Start IV fluids at 50 mL/h -Start Rocephin and Flagyl started Physician Construction Materials Tester note has been reviewed by physician. Signing provider agrees with the documented findings, assessment, and plan of care. Past Medical History Past Medical History: Cancer, Diabetes Mellitus, Hyperlipidemia Additional Past Medical History / Comment(s): hx melanoma on face, tingling in feet, covid 09/2021, will need aortic valve done soon, will be done @ [facility], recent hx. bladder cancer-had surg. & chemo instillation into bladder History of Any Multi-Drug Resistant Organisms: None Reported Additional Past Surgical History / Comment(s): colonoscopy, melanoma removed, bladder surg. to remove cancer Past Anesthesia/Blood Transfusion Reactions: Previous Problems w/ Anesthesia Additional Past Anesthesia/Blood Transfusion Reaction / Comm: woke up swinging after bladder surg. recently Past Psychological History: No Psychological Hx Reported Smoking Status: Former smoker, Vaper Past Alcohol Use History: None Reported Past Drug Use History: None Reported - Past Family History Mother Family Medical History: Congestive Heart Failure (CHF) Father Family Medical History: Cancer Additional Family Medical History / Comment(s): esophagus Medications and Allergies Home Medications Medication Instructions Recorded Confirmed Type Atorvastatin [Lipitor] 20 mg PO HS 12/20/22 12/13/24 History Multivit,Calc,Min/FA/K1/Lycop 1 tab PO DAILY 12/20/22 12/13/24 History [One-A-Day Men's Complete Tab] metFORMIN HCL 500 mg PO BID 12/20/22 12/13/24 History Aspirin EC [Ecotrin Low Dose] 81 mg PO DAILY 12/13/24 12/13/24 History Metoprolol Succinate (ER) [Toprol 50 mg PO DAILY 12/13/24 12/13/24 History Xl] Semaglutide [Ozempic] 0.25 mg SQ WE 12/13/24 12/13/24 History Allergies Allergy/AdvReac Type Severity Reaction Status Date / Time No Known Allergies Allergy Verified 12/13/24 08:27 Surgical - Exam Vital Signs Temp Pulse Resp BP Pulse Ox 97.3 F L 69 20 151/79 99 12/13/24 07:11 12/13/24 07:11 12/13/24 07:11 12/13/24 07:11 12/13/24 07:11 Results - Labs 12/13/24 07:40 12/13/24 07:40 Abnormal Lab Results - Last 24 Hours (Table) 12/13/24 12/13/24 12/13/24 Range/Units 07:40 07:40 07:40 Neutrophils # 7.8 H (1.3-7.7) k/uL D-Dimer 1.13 H (<0.60) mg/L FEU Sodium 136 L (137-145) mmol/L Carbon Dioxide 20 L (22-30) mmol/L BUN 23 H (9-20) mg/dL Glucose 210 H (74-99) mg/dL Total Protein 8.3 H (6.3-8.2) g/dL Diabetes panel 12/13/24 Range/Units 07:40 Sodium 136 L (137-145) mmol/L Potassium 4.4 (3.5-5.1) mmol/L Chloride 101 (98-107) mmol/L Carbon Dioxide 20 L (22-30) mmol/L BUN 23 H (9-20) mg/dL Creatinine 1.20 (0.66-1.25) mg/dL Glucose 210 H (74-99) mg/dL Calcium 9.3 (8.4-10.2) mg/dL AST 30 (17-59) U/L ALT 44 (4-49) U/L Alkaline Phosphatase 100 (38-126) U/L Total Protein 8.3 H (6.3-8.2) g/dL Albumin 4.9 (3.5-5.0) g/dL Calcium panel 12/13/24 Range/Units 07:40 Calcium 9.3 (8.4-10.2) mg/dL Albumin 4.9 (3.5-5.0) g/dL Pituitary panel 12/13/24 Range/Units 07:40 Sodium 136 L (137-145) mmol/L Potassium 4.4 (3.5-5.1) mmol/L Chloride 101 (98-107) mmol/L Carbon Dioxide 20 L (22-30) mmol/L BUN 23 H (9-20) mg/dL Creatinine 1.20 (0.66-1.25) mg/dL Glucose 210 H (74-99) mg/dL Calcium 9.3 (8.4-10.2) mg/dL Adrenal panel 12/13/24 Range/Units 07:40 Sodium 136 L (137-145) mmol/L Potassium 4.4 (3.5-5.1) mmol/L Chloride 101 (98-107) mmol/L Carbon Dioxide 20 L (22-30) mmol/L BUN 23 H (9-20) mg/dL Creatinine 1.20 (0.66-1.25) mg/dL Glucose 210 H (74-99) mg/dL Calcium 9.3 (8.4-10.2) mg/dL Total Bilirubin 0.8 (0.2-1.3) mg/dL AST 30 (17-59) U/L ALT 44 (4-49) U/L Alkaline Phosphatase 100 (38-126) U/L Total Protein 8.3 H (6.3-8.2) g/dL Albumin 4.9 (3.5-5.0) g/dL
[2024-12-13 16:50] LABS: Glucose,Whole Blood 171 mg/dL (70-110)
[2024-12-13] MEDS: metroNIDAZOLE-NS PMX 500 MG in SALINE 1 100ML.BAG IVPB SCH (16:54)
[2024-12-13] MEDS: ATORVASTATIN 20 MG TAB PO SCH (20:13)
[2024-12-14] MEDS ORDERED: DEXTROSE 50% SYRINGE 50 ML IVP PRN ×2 (08:28)
--- NOTE | 2024-12-14 08:31 | P.HPIM ---
History of Present Illness H&P Date: 12/14/24 Chief Complaint: Chest pain/epigastric pain This is history and physical 69-year-old white male that was admitted yesterday after having significant chest pressure. Myocardial infarction was ruled out and dramatically. Cardiology was consulted. He seemingly complained of epigastric pain as well. The patient then ended up having ultrasound abdomen after his symptomatology was more localized to the epigastrium. The patient ended up having symptomatic cholelithiasis. The patient has had surgical evaluation as well. Medications being monitored appropriately. Underlying history of diabetes. Will place on sliding scale Review of Systems Constitutional: Denies chills, Denies fever Eyes: denies blurred vision, denies pain Ears, nose, mouth and throat: Denies headache, Denies sore throat Cardiovascular: Reports as per HPI, Reports chest pain, Denies shortness of breath Respiratory: Denies cough Gastrointestinal: Reports as per HPI Musculoskeletal: Denies myalgias Past Medical History Past Medical History: Cancer, Diabetes Mellitus, Hyperlipidemia Additional Past Medical History / Comment(s): hx melanoma on face, tingling in feet, covid 09/2021, recent hx. bladder cancer-had surg. & chemo instillation into bladder History of Any Multi-Drug Resistant Organisms: None Reported Past Surgical History: Cardiac Valve Replacement Additional Past Surgical History / Comment(s): colonoscopy, melanoma removed, bladder surg. to remove cancer, AVR may 28 2024 Past Anesthesia/Blood Transfusion Reactions: Previous Problems w/ Anesthesia Additional Past Anesthesia/Blood Transfusion Reaction / Comment(s): woke up swinging after bladder surg. recently Past Psychological History: No Psychological Hx Reported Smoking Status: Former smoker, Vaper Past Alcohol Use History: None Reported Past Drug Use History: None Reported - Past Family History Mother Family Medical History: Congestive Heart Failure (CHF) Father Family Medical History: Cancer Additional Family Medical History / Comment(s): esophagus Medications and Allergies Home Medications Medication Instructions Recorded Confirmed Type Atorvastatin [Lipitor] 20 mg PO HS 12/20/22 12/13/24 History Multivit,Calc,Min/FA/K1/Lycop 1 tab PO DAILY 12/20/22 12/13/24 History [One-A-Day Men's Complete Tab] metFORMIN HCL 500 mg PO BID 12/20/22 12/13/24 History Aspirin EC [Ecotrin Low Dose] 81 mg PO DAILY 12/13/24 12/13/24 History Metoprolol Succinate (ER) [Toprol 50 mg PO DAILY 12/13/24 12/13/24 History Xl] Semaglutide [Ozempic] 0.25 mg SQ WE 12/13/24 12/13/24 History Allergies Allergy/AdvReac Type Severity Reaction Status Date / Time No Known Allergies Allergy Verified 12/13/24 08:27 Physical Exam Vitals: Vital Signs Temp Pulse Pulse Resp BP BP Pulse Ox 12/14/24 07:00 97.7 F 108 H 16 127/70 94 L 12/14/24 01:46 98.1 F 110 H 16 127/73 94 L 12/13/24 22:16 98.0 F 109 H 18 148/88 96 12/13/24 22:03 98.9 F 102 H 18 132/69 95 12/13/24 20:00 105 H 18 123/69 95 12/13/24 19:30 111 H 18 134/68 95 12/13/24 18:02 99 17 145/69 96 12/13/24 16:56 98 F 92 18 122/72 94 L 12/13/24 14:20 84 17 126/73 96 12/13/24 09:53 82 20 135/66 96 12/13/24 08:30 71 19 102/66 97 Intake and Output 12/13/24 12/14/24 12/14/24 22:59 06:59 14:59 Other: Voiding Method Toilet # Voids 2 Weight 102.965 kg - Constitutional General appearance: no acute distress - EENT Eyes: EOMI - Neck Neck: no lymphadenopathy - Respiratory Respiratory: bilateral: diminished - Cardiovascular Rhythm: regular Heart sounds: normal: S1, S2 Abnormal Heart Sounds: no S3 Gallop - Gastrointestinal General gastrointestinal: tenderness - Neurologic Neurologic: CNII-XII intact - Psychiatric Psychiatric: A&O x's 3 Results CBC & Chem 7: 12/13/24 07:40 12/13/24 07:40 Labs: Abnormal Lab Results - Last 24 Hours (Table) 12/13/24 12/13/24 Range/Units 07:40 16:48 D-Dimer 1.13 H (<0.60) mg/L FEU POC Glucose (mg/dL) 171 H (70-110) mg/dL Thrombosis Risk Factor Assmnt - Choose All That Apply Any of the Below Risk Factors Present?: Yes Each Factor Represents 1 point: Obesity (BMI >25) Each Risk Factor Represents 2 Points: Age 61-74 years Thrombosis Risk Factor Assessment Total Risk Factor Score: 3 Thrombosis Risk Factor Assessment Level: Moderate Risk Assessment and Plan (1) Cholelithiasis Current Visit: Yes Status: Acute Code(s): K80.20 - CALCULUS OF GALLBLADDER W/O CHOLECYSTITIS W/O OBSTRUCTION SNOMED Code(s): 979136537 (2) Diabetes Current Visit: Yes Status: Acute Code(s): E11.9 - TYPE 2 DIABETES MELLITUS WITHOUT COMPLICATIONS SNOMED Code(s): 24553024 (3) Hyperlipidemia Current Visit: Yes Status: Acute Code(s): E78.5 - HYPERLIPIDEMIA, UNSPECIFIED SNOMED Code(s): 48998471 (4) Chest pain Current Visit: Yes Status: Acute Code(s): R07.9 - CHEST PAIN, UNSPECIFIED SNOMED Code(s): 56819154 Plan: Await surgical evaluation workup. Cardiology has cleared. Will continue to follow from medical perspective. Time with Patient: Greater than 30
[2024-12-14] MEDS ORDERED: ASPIRIN 81 MG PO SCH (09:00)
[2024-12-14 10:51] LABS: Basophils # (A) 0.09 X 10*3/uL (0.00-0.10); Basophils % (A) 0.6 %; Eosinophils # (A) 0.04 X 10*3/uL (0.04-0.35); Eosinophils % (A) 0.3 %; HCT 43.8 % (39.6-50.0); HGB 14.3 g/dL (13.0-17.0); Lymphocytes # (A) 1.59 X 10*3/uL (0.90-5.00); MCHC 32.6 g/dL (32.0-37.0); MCV 91.8 FL (80.0-97.0); Monocytes # (A) 1.27 X 10*3/uL (0.20-1.00); Monocytes % (A) 8.8 %; NRBC Per 100 WBC 0 X 10*3/uL (0.00-0.01); Neutrophils # (A) 11.38 X 10*3/uL (1.80-7.70); Neutrophils % (A) 78.7 %; Platelet Count 212 X 10*3/uL (140-440); RBC 4.77 X 10*6/uL (4.40-5.60); RDW 13.8 % (11.5-14.5); WBC 14.46 X 10*3/uL (4.50-10.00)
[2024-12-14 10:54] LABS: ALT 39 U/L (10-49); AST 24 U/L (14-35); Albumin 3.9 g/dL (3.8-4.9); Albumin/Globulin Ratio 1.44 Ratio (1.60-3.17); Alkaline Phosphatase 64 U/L (41-126); BUN/Creat Ratio 16.31 Ratio (12.00-20.00); Bilirubin, Conjugated 0.22 mg/dL (0.20-0.40); Bilirubin,Unconjugated 0.28 mg/dL (0.20-1.00); Blood Urea Nitrogen 21.2 mg/dL (9.0-27.0); Calcium 8.6 mg/dL (8.7-10.3); Carbon Dioxide 21.8 mmol/L (21.6-31.8); Chloride 103 mmol/L (96-109); Chol/HDL Ratio 2.86 Ratio; Globulin 2.7 g/dL (1.6-3.3); Glucose 166 mg/dL (70-110); LDL Cholesterol,Calculated 61.3 mg/dL (0.0-131.0); Potassium 4.2 mmol/L (3.5-5.5); Sodium 137 mmol/L (135-145); Total Bilirubin 0.5 mg/dL (0.3-1.2); Total Protein 6.6 g/dL (6.2-8.2); VLDL Calculation 19.44 mg/dL (5.00-40.00)
--- NOTE | 2024-12-14 10:56 | P.PN ---
Subjective Progress Note Date: 12/14/24 Consult reason: chest pain History of present illness: This is a 69-year-old male patient of Dr. Morel with past medical history of diabetes mellitus type 2, dyslipidemia, aortic valve stenosis status post aortic valve replacement at [facility] May 2024, history of tobacco use and dependence. We have been asked to evaluate the patient for chest pain. Patient states he came into the hospital due to pain across his upper abdomen. He denies chest pain no chest pressure. He denies shortness of breath. No lightheadedness or dizziness. No fever or chills. Blood pressure 135/66, heart rate 82, pulse ox 96% on room air. Patient is seen today in the emergency center waiting for a bed on the observation unit. -EKG: Sinus rhythm with no acute ST-T wave changes. -Chest x-ray: No acute process. -Abdominal x-ray: Nonobstructive bowel gas pattern. -Gallbladder ultrasound: Cholelithiasis without acute cholecystitis. Hepatic steatosis. -Chest and abdominal CTA: No aortic dissection. Stable ectasia of the infrarenal distal abdominal aorta measuring 2.9 cm. 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 Mild atherosclerotic disease involving the aorta and its branches. Colonic diverticulosis. Hepatic steatosis. -Echocardiogram reveals EF of 55 to 60%, mild RV enlargement. Pulmonary artery systolic pressure not calculated. Bioprosthetic aortic valve with acceptable gradient of 7 mmHg. No regurgitation. -Laboratory studies: CBC, INR within normal limits. D-dimer 1.13. Sodium 136, potassium 4.4, BUN 23 creatinine 1.2. Troponin negative x 2. -Home cardiac medications: Aspirin 81 mg daily, atorvastatin 20 mg at bedtime, Toprol XL 50 mg daily, also on Ozempic. 12/14 Patient is seen and examined. We have been asked to give surgical clearance for gallbladder surgery. Patient denies having any chest pain, no chest pressure or tightness, no shortness of breath. He has noted to be slightly tachycardic with heart rate running right around 108, blood pressure 127/70, pulse ox 94% on room air. Repeat blood work reveals WBC 14.4, hemoglobin 14.3. BUN 21 creatinine 1.3, potassium 4.2, triglycerides 97, cholesterol 124, LDL 61, HDL 43. Troponins are negative x 3 total. Physical examination: Gen: This is a 69-year-old male in no acute distress VS: reviewed HEENT: Head is atraumatic, normocephalic. Pupils equal, round. Sclerae is anicteric. NECK: Supple. No JVD. LUNGS: Clear to auscultation. No wheezes or rhonchi. No intercostal retractions. HEART: Regular rate and rhythm. No murmur. ABDOMEN: Soft No tenderness. EXTREMITIES: No pedal edema. No calf tenderness. NEUROLOGICAL: Patient is awake, alert and oriented x3. Assessment: Abdominal pain No complaints of chest pain History of aortic stenosis status post valve replacement May 2024 at [facility] Diabetes mellitus type 2 Dyslipidemia Plan: Continue patient's home cardiac medications Increase Toprol XL to 75 mg daily, additional 25 mg to be given now Cardiology will sign off this case and follow on an as-needed basis. Please reconsult for any new concerns. Patient may follow-up in the office in one to 2 weeks. Thank you kindly for this consultation. Nurse practitioner note has been reviewed, I agree with documented findings and plan of care. Patient was seen and examined. Objective - Vital Signs Vital signs: Vital Signs Temp 97.7 F 12/14/24 07:00 Pulse 108 H 12/14/24 07:00 Resp 16 12/14/24 07:00 BP 127/70 12/14/24 07:00 Pulse Ox 94 L 12/14/24 07:00 FiO2 Intake & Output 12/13/24 12/14/24 12/14/24 18:59 06:59 18:59 Weight 102.965 kg 102.965 kg Other: Voiding Method Toilet # Voids 2 - Labs CBC & Chem 7: 12/14/24 05:36 12/14/24 05:36 Labs: Abnormal Lab Results - Last 24 Hours (Table) 12/13/24 Range/Units 16:48 POC Glucose (mg/dL) 171 H (70-110) mg/dL
[2024-12-14] MEDS: METOPROLOL SUCCINATE (ER) 25 MG TAB.ER.24H PO STA (11:26)
--- NOTE | 2024-12-14 11:47 | NM ---
EXAMINATION TYPE: NM hepatobiliary wo EF DATE OF EXAM: 12/14/2024 COMPARISON: Ultrasound gallbladder 12/13/2024, CTA thoracoabdominal 12/13/2024 CLINICAL INDICATION: Male, 69 years old with history of Cholecystitis; TECHNIQUE: After the intravenous administration of 4.94 mCi Tc 99m Mebrofenin hepatobiliary scintigra phy is performed. Immediate images post injection. FINDINGS: There is intermediate radiotracer uptake throughout the liver. Small bowel uptake is identified at 12 minutes. No visualized gallbladder uptake throughout the course of the exam extending to 4 hours how ever most of the radiotracer had exited the biliary system at 90 minutes. No evidence for common bile duct destruction. IMPRESSION: Nonvisualization of the gallbladder which raises concern for acute cholecystitis. [facility], , 12/14/2024 11:44 AM
[2024-12-14] MEDS: METOPROLOL SUCCINATE (ER) 25 MG TAB.ER.24H PO SCH (11:50)
[2024-12-14] MEDS: ASPIRIN 325 MG TAB PO SCH (11:50)
--- NOTE | 2024-12-14 14:45 | P.PN ---
Subjective Progress Note Date: 12/14/24 SURGICAL PROGRESS NOTE CHIEF COMPLAINT: Cholecystitis HISTORY OF PRESENT ILLNESS: Patient reports pain is better controlled. Vomiting is stopped since he is not eating. He continues to have pain across right upper quadrant epigastric area. HIDA scan reports nonvisualization of the gallbladder which raises concern for acute cholecystitis. Afebrile. WBC did go up from 9.4-14 Hgb 14.3 LFTs are normal. Afebrile. Mildly tachycardic improved PHYSICAL EXAM: VITAL SIGNS: Reviewed. GENERAL: Well-developed in no acute distress. ABDOMEN: Soft. Nondistended. Tenderness with palpation right upper quadrant epigastric area NEUROLOGIC: Alert and oriented. Cranial nerves II through XII grossly intact. ASSESSMENT: 1. Acute cholecystitis. Gallbladder ultrasound with cholelithiasis and distended gallbladder. Positive HIDA scan 2. History of aortic valve replacement May 2024 PLAN: -Patient scheduled for Robotic cholecystectomy today with Dr. Diaz -Keep patient n.p.o. -Patient cleared by cardiology service to proceed with surgery. They reported normal risk for complications. No absolute contraindication. Physician Route Delivery Driver note has been reviewed by physician. Signing provider agrees with the documented findings, assessment, and plan of care. Objective - Vital Signs Vital signs: Vital Signs Temp 98.3 F 12/14/24 14:03 Pulse 85 12/14/24 14:03 Resp 24 12/14/24 14:03 BP 128/70 12/14/24 14:03 Pulse Ox 94 L 12/14/24 14:03 FiO2 Intake & Output 12/13/24 12/14/24 12/14/24 18:59 06:59 18:59 Weight 102.965 kg 102.965 kg Other: Voiding Method Toilet Toilet # Voids 2 3 - Labs CBC & Chem 7: 12/14/24 05:36 12/14/24 05:36 Labs: Abnormal Lab Results - Last 24 Hours (Table) 12/13/24 12/14/24 12/14/24 Range/Units 16:48 05:36 05:36 WBC 14.46 H (4.50-10.00) X 10*3/uL Immature Gran # 0.09 H (0.00-0.04) X 10*3/uL Neutrophils # 11.38 H (1.80-7.70) X 10*3/uL Monocytes # 1.27 H (0.20-1.00) X 10*3/uL Anion Gap 12.20 H (4.00-12.00) mmol/L Est GFR (CKD-EPI) 59 L (>=60) Glucose 166 H (70-110) mg/dL POC Glucose (mg/dL) 171 H (70-110) mg/dL Calcium 8.6 L (8.7-10.3) mg/dL Albumin/Globulin Ratio 1.44 L (1.60-3.17) Ratio
[2024-12-14 17:24] LABS: Glucose,Whole Blood 105 mg/dL (70-110)
[2024-12-14] MEDS: LIDOCAINE 1%-EPI 1:100,000 20 ML VIAL SQ ONE ×3 (18:40→20:30)
[2024-12-14] MEDS ORDERED: SUCCINYLCHOLINE CHLORIDE 200 MG/10 ML VIAL IV ONE (18:44)
[2024-12-14] MEDS ORDERED: MIDAZOLAM 2 MG/2 ML VIAL ONE (18:44)
[2024-12-14] MEDS ORDERED: GLYCOPYRROLATE 0.2 MG/ML 2 ML VIAL ONE (18:44)
[2024-12-14] MEDS ORDERED: ROCURONIUM 10 MG/ML (5 ML VIAL) IV ONE (18:44)
[2024-12-14] MEDS ORDERED: PHENYLEPHRINE 10 MG/ML VIAL ONE (18:44)
[2024-12-14] MEDS ORDERED: KETAMINE HCL IN 0.9 % NACL 50 MG/5 ML SYRINGE ONE (18:44)
[2024-12-14] MEDS ORDERED: PROPOFOL 10 MG/ML 20 ML VIAL IV ONE (18:44)
[2024-12-14] MEDS ORDERED: NEOSTIGMINE 1 MG/ML 10 ML VIAL ONE (18:44)
[2024-12-14] MEDS: SODIUM CHLORIDE 0.9% 1,000 ML IV ONE (18:44)
[2024-12-14] MEDS ORDERED: fentaNYL (PF) 50 MCG/ML 2 ML AMP ONE (18:44)
[2024-12-14] MEDS: SODIUM CHLORIDE 0.9% 50 ML with ceFAZolin 2,000 MG IV ONE (19:05)
[2024-12-14] MEDS: LACTATED RINGERS 1,000 ML IV ONE ×2 (19:17→20:29)
[2024-12-14 21:09] LABS: Glucose,Whole Blood 140 mg/dL (70-110)
[2024-12-14 21:50] LABS: Glucose,Whole Blood 160 mg/dL (70-110)
--- NOTE | 2024-12-14 21:57 | P.OP ---
Date of Procedure: 12/14/24 Preoperative Diagnosis: acute cholecystitis Postoperative Diagnosis: acute cholecystitis Procedure(s) Performed: Robotic assisted cholecystectomy Anesthesia: STEPHANIEA Surgeon: Keanu Diaz Estimated Blood Loss (ml): 100 Pathology: other (gallbladder) Condition: stable Disposition: PACU Indications for Procedure: acute cholecystitis Operative Findings: gangrenous gallbladder Description of Procedure: Patient was brought to the operative suite where he was cleaned and draped in sterile fashion. A timeout was performed and everyone agreed with the information recited. Next a number 15 blade was used to make an incision in the left upper quadrant and a 5mm visiport was used to gain access to the abdomen. Next 3 more 8mm working ports were placed in the midabdomen and right upper quadrant. The left upper quadrant 5mm port was exchanged for an 8mm port. The robot was docked and the gallbladder appeared to be gangrenous at the infundibulum. There was a large amount of adhesions spanning from the stomach/duodenum to the gallbladder. These adhesions were friable and was taken down with a combnation of blunt dissection and electrocautery. Once the adhesions was taken down, the gallbladder was taught and had to be drained. Finally I retracted the gallbladder cephalad and laterally. I was able to identify both the cystic artery and duct with the help of anatomical landmarks and icg. Both structures were double clipped distally and one proximally. Both structures were ligated using electrocautery. I then dissected the gallbladder off of the liver bed using electrocautery. This proved to be very difficult as there was a lot of scar tissue, inflammation and bleeding. Once the gallbladder was dissected off of the liver bed, suction was used to remove some minor bile spillage and clots. A hemostatic time out was performed and surgicel powder was applied to the omentum and the fossa. No active bleeding was seen. The gallbladder was removed out of the abdomen from the left upper quadrant. This port was closed using 0 vicryl suture in a figure eight fashion. a chance drain was placed in the right upper quadrant. The surgical incisions were closed using 4-0 vicryl suture. The patient tolerated the procedure well and was transported to pacu in stable condition.
[2024-12-14] MEDS: ONDANSETRON 4 MG/2 ML VIAL IVP PRN (21:59)
[2024-12-14] MEDS: HYDROcodone/APAP 7.5-325MG 1 EACH TAB PO PRN (23:11)
[2024-12-15 05:48] LABS: Glucose,Whole Blood 119 mg/dL (70-110)
[2024-12-15] MEDS ORDERED: METOPROLOL SUCCINATE (ER) 25 MG TAB.ER.24H PO SCH (09:00)
[2024-12-15] MEDS: FAMOTIDINE 20 MG TAB PO SCH (09:27)
--- NOTE | 2024-12-15 10:30 | XR ---
EXAMINATION TYPE: XR chest 2V DATE OF EXAM: 12/15/2024 10:19 AM COMPARISON: 12/13/2024 CLINICAL INDICATION: Male, 69 years old with history of hypoxia, TECHNIQUE: XR chest 2V view(s) obtained. FINDINGS: The heart size is normal. The pulmonary vasculature is normal. There is a posterior infiltrate. Correlate for atelectasis or pneumonia. Some platelike atelectasis at the right lung base. Minimal blunting left costophrenic angle suggests a small effusion. Sternotomy wires from prior cardiac valve surgery are evident.. IMPRESSION: 1. Retrocardiac infiltrate. Correlate for atelectasis or pneumonia. 2. Minimal platelike atelectasis right costophrenic angle. 3. Suspected small left pleural effusion. [facility], , 12/15/2024 10:27 AM
[2024-12-15 11:58] LABS: Glucose,Whole Blood 151 mg/dL (70-110)
[2024-12-15] MEDS ORDERED: DEXTROSE 50% SYRINGE 50 ML IVP PRN ×2 (14:15)
[2024-12-15 15:14] LABS: African American GFR (CKD) 69 (>60 ml/min/1.73 sqM); Anion Gap 11 mmol/L; Blood Urea Nitrogen 20 mg/dL (9-20); Calcium 8.4 mg/dL (8.4-10.2); Carbon Dioxide 23 mmol/L (22-30); Chloride 101 mmol/L (98-107); Glucose 147 mg/dL (74-99); Non-African American GFR(CKD) 59 (>60 ml/min/1.73 sqM); Potassium 4.4 mmol/L (3.5-5.1); Sodium 135 mmol/L (137-145)
[2024-12-15 15:23] LABS: NT-Pro-B-Type Natriuretic Pept 626 pg/mL
[2024-12-15 17:14] LABS: Glucose,Whole Blood 107 mg/dL (70-110)
[2024-12-15] MEDS: INSULIN LISPRO (HumaLOG) 100 UNIT/ML 10 mL VL SQ SCH (17:14)
--- NOTE | 2024-12-15 20:31 | P.PN ---
Subjective Progress Note Date: 12/15/24 This is history and physical 69-year-old white male that was admitted yesterday after having significant chest pressure. Myocardial infarction was ruled out and dramatically. Cardiology was consulted. He seemingly complained of epigastric pain as well. The patient then ended up having ultrasound abdomen after his symptomatology was more localized to the epigastrium. The patient ended up having symptomatic cholelithiasis. The patient has had surgical evaluation as well. Medications being monitored appropriately. Underlying history of diabetes. Will place on sliding scale 12/15/2024 Patient evaluated today in follow up on the medical floor. He is postoperative day #1 laproscopic cholecystectomy. He states his abdominal pain is currently an 8/10. He is agitated today states his pain is not any better than before surgery. He is not wanting to get out of bed and needs encouragement and rylan nforcement. He has not been passing gas and having some abdominal distention today. On clear liquid diet. Chest xray taken reveals a retrocardiac infiltrate correlate for atelectasis or pneumonia. Minimal platelet atelectasis right costophrenic angle. Suspected small left pleural effusion. He has been continued on IV ceftriaxone and IV flagyl. Review of Systems Constitutional: Denied any fatigue denied any fever. Cardio vascular: denied any chest pain, palpitations Gastrointestinal: denied any nausea, vomiting, diarrhea. Reports abdominal pain and reports bloating. Pulmonary: Denied any shortness of breath cough Neurologic denied any new focal deficits All inpatient medications were reviewed and appropriate changes in these medications as dictated in the interval history and assessment and plan. PHYSICAL EXAMINATION: GENERAL: The patient is alert and oriented x3, not in any acute distress. Well developed, well nourished. HEENT: Pupils are round and equally reacting to light. EOMI. No scleral icterus. No conjunctival pallor. Normocephalic, atraumatic. No pharyngeal erythema. No thyromegaly. CARDIOVASCULAR: S1 and S2 present. No murmurs, rubs, or gallops. PULMONARY: Chest is clear to auscultation, no wheezing or crackles. ABDOMEN: Soft, tender, distended, normoactive bowel sounds. No palpable organomegaly. MUSCULOSKELETAL: No joint swelling or deformity. EXTREMITIES: No cyanosis, clubbing, or pedal edema. NEUROLOGICAL: Gross neurological examination did not reveal any focal deficits. SKIN: No rashes. Assessment and Plan Abdominal pain Acute cholelisthiasis postoperative day #1 laproscopic cholecystectomy Diabetes Mellitus type 2 Hyperlipidemia Retrocardiac infiltrate/atelectasis postoperatively recommending to continue with the IV ceftriaxone and also incentive spirometer and encourage patient to use 10 x an hour while awake. Patient needs encouragement to be up out of bed and should be sitting up in the chair for meals. PT/OT consulted. Hx of aortic stenosis status post valve replacement May 2024 at [facility] GI prophylaxis DVT prophylaxis as per primary Plan Continue IV ceftriaxone and IV flagyl encourage incentive spirometer Stop IV fluids Repeat labs in the AM Add pepcid Continue pain management and bowel regimen The impression and plan of care has been dictated by Areli Og, Nurse Practitioner as directed. Dr. Jay MD I have performed a history and physical examination and medical decision making of this patient, discussed the same with the dictator, and agree with the dictators assessment and plan as written, documented as a scribe. Based on total visit time, I have performed more than 50% of this visit. Objective - Vital Signs Vital signs: Vital Signs Temp 98.6 F 12/15/24 07:00 Pulse 105 H 12/15/24 07:00 Resp 21 12/15/24 07:00 BP 131/76 12/15/24 07:00 Pulse Ox 92 L 12/15/24 10:52 FiO2 Intake & Output 12/14/24 12/15/24 12/15/24 18:59 06:59 18:59 Intake Total 900 1450 Output Total 60 Balance 900 1390 Intake: IV 900 1450 Output: Drainage 40 Right Abdomen 40 Estimated Blood Loss 20 Other: Voiding Method Toilet Toilet Urinal # Voids 3 2 - Labs CBC & Chem 7: 12/14/24 05:36 12/15/24 14:18 Labs: Abnormal Lab Results - Last 24 Hours (Table) 12/13/24 12/14/24 12/14/24 Range/Units 07:40 21:08 21:49 POC Glucose (mg/dL) 140 H 160 H (70-110) mg/dL Hemoglobin A1c 7.9 H (<=6.0) % 12/15/24 12/15/24 Range/Units 05:47 11:56 POC Glucose (mg/dL) 119 H 151 H (70-110) mg/dL Hemoglobin A1c (<=6.0) % Assessment and Plan Time with Patient: Less than 30
[2024-12-15 20:45] LABS: Glucose,Whole Blood 149 mg/dL (70-110)
[2024-12-15] MEDS: FUROSEMIDE 10 MG/ML 2 ML VIAL IV ONE (20:47)
--- NOTE | 2024-12-15 22:41 | P.PN ---
Subjective Patient seen and evaluated at bedside. still having significant abdominal pain. Objective - Vital Signs Vital signs: Vital Signs Temp 99.5 F 12/15/24 19:16 Pulse 69 12/15/24 19:16 Resp 15 12/15/24 19:16 BP 107/67 12/15/24 19:16 Pulse Ox 90 L 12/15/24 19:16 FiO2 Intake & Output 12/15/24 12/15/24 12/16/24 06:59 18:59 06:59 Intake Total 1450 550 Output Total 60 20 Balance 1390 530 Intake: IV 1450 Intake, IV Titration 550 Amount Sodium Chloride 0.9% 1, 400 000 ml @ 50 mls/hr IV . Q20H [facility] Rx#:[id number] cefTRIAXone 1 gm In 50 Sodium Chloride 0.9% 50 ml @ 100 mls/hr IVPB Q24HR [facility] Rx#:[id number] metroNIDAZOLE-NS PMX 500 100 mg In Saline 1 100ml.bag @ 100 mls/hr IVPB Q8HR [facility] Rx#:[id number] Output: Drainage 40 20 Right Abdomen 40 20 Estimated Blood Loss 20 Other: Voiding Method Toilet Toilet Urinal # Voids 2 1 - Labs CBC & Chem 7: 12/14/24 05:36 12/15/24 14:18 Labs: Abnormal Lab Results - Last 24 Hours (Table) 12/13/24 12/15/24 12/15/24 Range/Units 07:40 05:47 11:56 Sodium (137-145) mmol/L Glucose (74-99) mg/dL POC Glucose (mg/dL) 119 H 151 H (70-110) mg/dL Hemoglobin A1c 7.9 H (<=6.0) % 12/15/24 12/15/24 Range/Units 14:18 20:43 Sodium 135 L (137-145) mmol/L Glucose 147 H (74-99) mg/dL POC Glucose (mg/dL) 149 H (70-110) mg/dL Hemoglobin A1c (<=6.0) % Assessment and Plan Assessment: post op lap cholecystectomy -pain control -ok for diet -follow up labs
[2024-12-15 23:24] LABS: Basophils # (A) 0.1 k/uL (0-0.2); Basophils % (A) 1 %; Eosinophils # (A) 0.3 k/uL (0-0.7); Eosinophils % (A) 3 %; HCT 39.6 % (39.0-53.0); Lymphocytes # (A) 1.2 k/uL (1.0-4.8); Lymphocytes % (A) 14 %; MCH 30.7 pg (25.0-35.0); MCHC 32.9 g/dL (31.0-37.0); MCV 93.3 fL (80.0-100.0); Mean Platelet Volume 7.9; Monocytes # (A) 0.6 k/uL (0-1.0); Monocytes % (A) 7 %; Neutrophils # (A) 6.4 k/uL (1.3-7.7); Neutrophils % (A) 74 %; Platelet Count 188 k/uL (150-450); RBC 4.25 m/uL (4.30-5.90); RDW 13.9 % (11.5-15.5); WBC 8.7 k/uL (3.8-10.6)
[2024-12-16 06:02] LABS: Glucose,Whole Blood 110 mg/dL (70-110)
[2024-12-16 09:25] LABS: Basophils # (A) 0.09 X 10*3/uL (0.00-0.10); Eosinophils # (A) 0.24 X 10*3/uL (0.04-0.35); Eosinophils % (A) 2.7 %; HCT 41.7 % (39.6-50.0); HGB 13.5 g/dL (13.0-17.0); Lymphocytes # (A) 1.03 X 10*3/uL (0.90-5.00); Lymphocytes % (A) 11.5 %; MCH 30.1 pg (27.0-32.0); MCHC 32.4 g/dL (32.0-37.0); MCV 92.9 FL (80.0-97.0); Mean Platelet Volume 10.6 FL (9.5-12.2); Monocytes # (A) 0.73 X 10*3/uL (0.20-1.00); Monocytes % (A) 8.2 %; NRBC Per 100 WBC 0 X 10*3/uL (0.00-0.01); Neutrophils # (A) 6.81 X 10*3/uL (1.80-7.70); Neutrophils % (A) 76.3 %; Platelet Count 186 X 10*3/uL (140-440); RBC 4.49 X 10*6/uL (4.40-5.60); RDW 13.7 % (11.5-14.5); WBC 8.93 X 10*3/uL (4.50-10.00)
[2024-12-16 10:06] LABS: BUN/Creat Ratio 13.33 Ratio (12.00-20.00); Calcium 7.8 mg/dL (8.7-10.3); Carbon Dioxide 23.3 mmol/L (21.6-31.8); Chloride 103 mmol/L (96-109); Glucose 128 mg/dL (70-110); Potassium 4.2 mmol/L (3.5-5.5); Sodium 136 mmol/L (135-145)
[2024-12-16 11:59] LABS: Glucose,Whole Blood 131 mg/dL (70-110)
[2024-12-16 17:19] LABS: Glucose,Whole Blood 147 mg/dL (70-110)
--- NOTE | 2024-12-16 18:26 | P.PN ---
Subjective Patient seen and evaluated at bedside. still having significant abdominal pain. Objective - Vital Signs Vital signs: Vital Signs Temp 98.8 F 12/16/24 15:00 Pulse 91 12/16/24 15:00 Resp 17 12/16/24 15:00 BP 120/65 12/16/24 15:00 Pulse Ox 90 L 12/16/24 15:00 FiO2 Intake & Output 12/15/24 12/16/24 12/16/24 18:59 06:59 18:59 Intake Total 550 300 Output Total 20 10 Balance 530 290 Intake: Intake, IV Titration 550 300 Amount Sodium Chloride 0.9% 1, 400 50 000 ml @ 50 mls/hr IV . Q20H [facility] Rx#:[id number] cefTRIAXone 1 gm In 50 50 Sodium Chloride 0.9% 50 ml @ 100 mls/hr IVPB Q24HR [facility] Rx#:[id number] metroNIDAZOLE-NS PMX 500 100 200 mg In Saline 1 100ml.bag @ 100 mls/hr IVPB Q8HR [facility] Rx#:[id number] Output: Drainage 20 10 Right Abdomen 20 10 Other: Voiding Method Toilet # Voids 3 - Exam general no acute distress Cardiac vascular regular rate and rhythm Pulmonary nonlabored breathing Abdomen is soft, tender to palpation no guarding rebound tenderness patient is sitting up, probably talk to family - Labs CBC & Chem 7: 12/16/24 04:48 12/16/24 04:48 Labs: Abnormal Lab Results - Last 24 Hours (Table) 12/15/24 12/15/24 12/16/24 Range/Units 20:43 22:52 04:48 RBC 4.25 L (4.30-5.90) m/uL Glucose (70-110) mg/dL POC Glucose (mg/dL) 149 H (70-110) mg/dL Hemoglobin A1c 7.3 H (<=6.0) % Calcium (8.7-10.3) mg/dL 12/16/24 12/16/24 12/16/24 Range/Units 04:48 11:58 17:17 RBC (4.30-5.90) m/uL Glucose 128 H (70-110) mg/dL POC Glucose (mg/dL) 131 H 147 H (70-110) mg/dL Hemoglobin A1c (<=6.0) % Calcium 7.8 L (8.7-10.3) mg/dL Assessment and Plan Assessment: 69-year-old male with acute cholecystitis with gangrenous changes Advance diet to regular diet Pain medication as tolerated Possible discharge in a.m. Time with Patient: Less than 30
[2024-12-16 20:18] LABS: Glucose,Whole Blood 137 mg/dL (70-110)
--- NOTE | 2024-12-16 21:15 | P.PN ---
Subjective Progress Note Date: 12/16/24 This is history and physical 69-year-old white male that was admitted yesterday after having significant chest pressure. Myocardial infarction was ruled out and dramatically. Cardiology was consulted. He seemingly complained of epigastric pain as well. The patient then ended up having ultrasound abdomen after his symptomatology was more localized to the epigastrium. The patient ended up having symptomatic cholelithiasis. The patient has had surgical evaluation as well. Medications being monitored appropriately. Underlying history of diabetes. Will place on sliding scale 12/15/2024 Patient evaluated today in follow up on the medical floor. He is postoperative day #1 laproscopic cholecystectomy. He states his abdominal pain is currently an 8/10. He is agitated today states his pain is not any better than before surgery. He is not wanting to get out of bed and needs encouragement and rylan nforcement. He has not been passing gas and having some abdominal distention today. On clear liquid diet. Chest xray taken reveals a retrocardiac infiltrate correlate for atelectasis or pneumonia. Minimal platelet atelectasis right costophrenic angle. Suspected small left pleural effusion. He has been continued on IV ceftriaxone and IV flagyl. 12/16/2024 Patient evaluated today sitting up in the chair with family at the bedside. He was found to have oxygen saturations of 88% overnight was placed on nasal cannula. Today he is 95% on room air and lungs are clear. Will take off the oxygen and continue monitoring. Patient is encouraged to use the incentive spirometer. He states he is not passing gas yet and has not had a BM. He does have active bowel sounds. Currently postoperative day #2 laproscopic cholecystectomy. CBC unremarkable. Renal function wnl. Calcium 7.8. Review of Systems Constitutional: Denied any fatigue denied any fever. Cardio vascular: denied any chest pain, palpitations Gastrointestinal: denied any nausea, vomiting, diarrhea. Reports abdominal pain and reports bloating. Pulmonary: Denied any shortness of breath cough Neurologic denied any new focal deficits All inpatient medications were reviewed and appropriate changes in these medications as dictated in the interval history and assessment and plan. PHYSICAL EXAMINATION: GENERAL: The patient is alert and oriented x3, not in any acute distress. Well developed, well nourished. HEENT: Pupils are round and equally reacting to light. EOMI. No scleral icterus. No conjunctival pallor. Normocephalic, atraumatic. No pharyngeal erythema. No thyromegaly. CARDIOVASCULAR: S1 and S2 present. No murmurs, rubs, or gallops. PULMONARY: Chest is clear to auscultation, no wheezing or crackles. ABDOMEN: Soft, tender, distended, normoactive bowel sounds. No palpable organomegaly. MUSCULOSKELETAL: No joint swelling or deformity. EXTREMITIES: No cyanosis, clubbing, or pedal edema. NEUROLOGICAL: Gross neurological examination did not reveal any focal deficits. SKIN: No rashes. Assessment and Plan Abdominal pain Acute cholelisthiasis postoperative day #2 laproscopic cholecystectomy Diabetes Mellitus type 2 Hyperlipidemia Retrocardiac infiltrate/atelectasis postoperatively recommending to continue w ith the IV ceftriaxone and also incentive spirometer and encourage patient to use 10 x an hour while awake. Patient needs encouragement to be up out of bed and should be sitting up in the chair for meals. PT/OT consulted. Hx of aortic stenosis status post valve replacement May 2024 at [facility] GI prophylaxis DVT prophylaxis as per primary Plan Continue IV ceftriaxone and IV flagyl encourage incentive spirometer Add pepcid Continue pain management and bowel regimen Possible DC home in the next 24 hours The impression and plan of care has been dictated by Areli Og, Nurse Practitioner as directed. Dr. Jay MD I have performed a history and physical examination and medical decision making of this patient, discussed the same with the dictator, and agree with the dictators assessment and plan as written, documented as a scribe. Based on total visit time, I have performed more than 50% of this visit. Objective - Vital Signs Vital signs: Vital Signs Temp 99.2 F 12/16/24 19:11 Pulse 94 12/16/24 19:11 Resp 15 12/16/24 19:11 BP 117/65 12/16/24 19:11 Pulse Ox 90 L 12/16/24 19:11 FiO2 Intake & Output 12/16/24 12/16/24 12/17/24 06:59 18:59 06:59 Intake Total 300 Output Total 10 Balance 290 Intake: Intake, IV Titration 300 Amount Sodium Chloride 0.9% 1, 50 000 ml @ 50 mls/hr IV . Q20H [facility] Rx#:[id number] cefTRIAXone 1 gm In 50 Sodium Chloride 0.9% 50 ml @ 100 mls/hr IVPB Q24HR [facility] Rx#:[id number] metroNIDAZOLE-NS PMX 500 200 mg In Saline 1 100ml.bag @ 100 mls/hr IVPB Q8HR [facility] Rx#:[id number] Output: Drainage 10 Right Abdomen 10 Other: Voiding Method Toilet # Voids 3 - Labs CBC & Chem 7: 12/16/24 04:48 12/16/24 04:48 Labs: Abnormal Lab Results - Last 24 Hours (Table) 12/15/24 12/16/24 12/16/24 Range/Units 22:52 04:48 04:48 RBC 4.25 L (4.30-5.90) m/uL Glucose 128 H (70-110) mg/dL POC Glucose (mg/dL) (70-110) mg/dL Hemoglobin A1c 7.3 H (<=6.0) % Calcium 7.8 L (8.7-10.3) mg/dL 12/16/24 12/16/24 12/16/24 Range/Units 11:58 17:17 20:16 RBC (4.30-5.90) m/uL Glucose (70-110) mg/dL POC Glucose (mg/dL) 131 H 147 H 137 H (70-110) mg/dL Hemoglobin A1c (<=6.0) % Calcium (8.7-10.3) mg/dL Assessment and Plan Time with Patient: Less than 30
[2024-12-16 22:17] LABS: Basophils # (A) 0.1 k/uL (0-0.2); Basophils % (A) 1 %; Eosinophils # (A) 0.3 k/uL (0-0.7); Eosinophils % (A) 3 %; HCT 40.6 % (39.0-53.0); HGB 13.5 gm/dL (13.0-17.5); Lymphocytes # (A) 1.4 k/uL (1.0-4.8); Lymphocytes % (A) 16 %; MCH 30.9 pg (25.0-35.0); MCHC 33.3 g/dL (31.0-37.0); MCV 92.8 fL (80.0-100.0); Monocytes # (A) 0.6 k/uL (0-1.0); Monocytes % (A) 7 %; Neutrophils % (A) 71 %; Platelet Count 195 k/uL (150-450); RBC 4.38 m/uL (4.30-5.90); RDW 13.8 % (11.5-15.5); WBC 8.4 k/uL (3.8-10.6)
[2024-12-17 06:22] LABS: Glucose,Whole Blood 120 mg/dL (70-110)
[2024-12-17 08:34] VITALS: BP 115/63; PULSE 84; RESP 16; TEMP 98.3
--- NOTE | 2024-12-17 09:00 | P.DS ---
Providers Date of admission: 12/13/24 08:39 Attending physician: Wang Rodriguez Consults: 12/13/24 08:36 Consult Physician Urgent Consulting Provider: Alok Davila Consult Reason/Comments: cp Do you want consulting provider notified?: Yes 12/13/24 09:37 Consult Physician Urgent Consulting Provider: Anatoliy Lynne Consult Reason/Comments: cholelithiasis Do you want consulting provider notified?: Yes 12/14/24 09:48 Consult Physician Routine Consulting Provider: Isaias Roy Consult Reason/Comments: cardiology clearance for surgery Do you want consulting provider notified?: Already Contacted Primary care physician: Wang Rodriguez - Discharge Diagnosis(es) (1) Cholelithiasis Current Visit: Yes Status: Acute (2) Diabetes Current Visit: Yes Status: Acute (3) Hyperlipidemia Current Visit: Yes Status: Acute (4) History of cholecystectomy Current Visit: Yes Status: Acute (5) History of aortic valve replacement Current Visit: Yes Status: Acute Hospital Course: This is a 69-year-old male who presented to the emergency department with compl aints of significant chest pressure. Myocardial infarction was ruled out. Patient had an abdominal ultrasound completed as his pain was more epigastric in nature and was found to have symptomatic cholelithiasis. Patient underwent a laparoscopic cholecystectomy on Tuesday. He reports his symptoms have improved. He reports he has had a bowel movement and is passing gas. He is tolerating diet. Patient may be discharged home today if cleared by surgeon. Patient seen and evaluated by nurse practitioner, physician in agreement with plan. Patient Condition at Discharge: Stable Plan - Discharge Summary New Discharge Prescriptions: New Aspirin 325 mg PO DAILY #30 tab Famotidine [Pepcid] 20 mg PO DAILY #30 tab HYDROcodone/APAP 7.5-325MG [[place] 7.5-325] 1 each PO Q6HR PRN #60 tab PRN Reason: Pain Continue metFORMIN HCL 500 mg PO BID Aspirin EC [Ecotrin Low Dose] 81 mg PO DAILY Semaglutide [Ozempic] 0.25 mg SQ WE Atorvastatin [Lipitor] 20 mg PO HS Multivit,Calc,Min/FA/K1/Lycop [One-A-Day Men's Complete Tab] 1 tab PO DAILY Metoprolol Succinate (ER) [Toprol XL] 50 mg PO DAILY Discharge Medication List Atorvastatin [Lipitor] 20 mg PO HS 12/20/22 [History] Multivit,Calc,Min/FA/K1/Lycop [One-A-Day Men's Complete Tab] 1 tab PO DAILY 12/20/22 [History] metFORMIN HCL 500 mg PO BID 12/20/22 [History] Aspirin EC [Ecotrin Low Dose] 81 mg PO DAILY 12/13/24 [History] Metoprolol Succinate (ER) [Toprol XL] 50 mg PO DAILY 12/13/24 [History] Semaglutide [Ozempic] 0.25 mg SQ WE 12/13/24 [History] Aspirin 325 mg PO DAILY #30 tab 12/17/24 [Rx] Famotidine [Pepcid] 20 mg PO DAILY #30 tab 12/17/24 [Rx] HYDROcodone/APAP 7.5-325MG [[place] 7.5-325] 1 each PO Q6HR PRN #60 tab 12/17/24 [Rx] Follow up Appointment(s)/Referral(s): Wang Rodriguez MD [Primary Care Provider] - 3 Days Discharge Disposition: HOME SELF-CARE
[2024-12-17 10:31] LABS: Albumin 3.5 g/dL (3.8-4.9); Albumin/Globulin Ratio 1.35 Ratio (1.60-3.17); Bilirubin, Conjugated 0.21 mg/dL (0.20-0.40); Bilirubin,Unconjugated 0.19 mg/dL (0.20-1.00); Globulin 2.6 g/dL (1.6-3.3); Total Bilirubin 0.4 mg/dL (0.3-1.2); Total Protein 6.1 g/dL (6.2-8.2)
--- NOTE | 2024-12-17 12:31 | P.PN ---
Subjective Progress Note Date: 12/17/24 SURGICAL PROGRESS NOTE CHIEF COMPLAINT: Cholecystitis HISTORY OF PRESENT ILLNESS: Postop day #3 status post robotic cholecystectomy. Patient had serosanguineous drainage around the MYRNA drain site. There has been minimal to no output through the MYRNA drain. Patient complains of pain where the MYRNA drain was located. Nursing staff removed MYRNA drain and more serosanguineous drainage was expelled. Patient reports pain has improved greatly after the MYRNA drain was removed. He is having bowel movements and flatus. Denies any nausea or vomiting. Afebrile. WBC 8.4 PHYSICAL EXAM: VITAL SIGNS: Reviewed. GENERAL: Well-developed in no acute distress. ABDOMEN: Soft. Nondistended. Incision sites clean dry and intact. NEUROLOGIC: Alert and oriented. Cranial nerves II through XII grossly intact. ASSESSMENT: 1. Acute cholecystitis. Status post robotic cholecystectomy 2. History of aortic valve replacement May 2024 PLAN: -Patient can be discharged with outpatient follow up -Continue pain management Physician Ceo [employer] note has been reviewed by physician. Signing provider agrees with the documented findings, assessment, and plan of care. Attestation Patient seen and examined at bedside. MYRNA drain removed with significant fluid output. Patient states pain has been relieved since. Dressing in place. Wound care and activity instructions provided. Surgically stable for discharge. Brittany Peraza DO Objective - Vital Signs Vital signs: Vital Signs Temp 98.3 F 12/17/24 07:00 Pulse 84 12/17/24 07:00 Resp 16 12/17/24 07:00 BP 115/63 12/17/24 07:00 Pulse Ox 94 L 12/17/24 07:00 FiO2 Intake & Output 12/16/24 12/17/24 12/17/24 18:59 06:59 18:59 Intake Total 300 180 Output Total 10 Balance 290 180 Intake: Intake, IV Titration 300 Amount Sodium Chloride 0.9% 1, 50 000 ml @ 50 mls/hr IV . Q20H [facility] Rx#:[id number] cefTRIAXone 1 gm In 50 Sodium Chloride 0.9% 50 ml @ 100 mls/hr IVPB Q24HR [facility] Rx#:[id number] metroNIDAZOLE-NS PMX 500 200 mg In Saline 1 100ml.bag @ 100 mls/hr IVPB Q8HR [facility]AN Rx#:[id number] Oral 180 Output: Drainage 10 Right Abdomen 10 Other: # Voids 3 # Bowel Movements 0 - Labs CBC & Chem 7: 12/16/24 22:01 12/16/24 04:48 Labs: Abnormal Lab Results - Last 24 Hours (Table) 12/16/24 12/16/24 12/16/24 Range/Units 04:48 11:58 17:17 Glucose 128 H (70-110) mg/dL POC Glucose (mg/dL) 131 H 147 H (70-110) mg/dL Calcium 7.8 L (8.7-10.3) mg/dL 12/16/24 12/17/24 Range/Units 20:16 06:19 Glucose (70-110) mg/dL POC Glucose (mg/dL) 137 H 120 H (70-110) mg/dL Calcium (8.7-10.3) mg/dL
--- NOTE | 2024-12-20 14:41 | CDI ---
Documentation Clarification Form Date: 12/20/2024 02:23:44 PM From: Andie Louise RN, CCDS Email: [email or web address] Admit Date: 12/13/2024 08:39:00 AM Patient Name: Juan Monterroso Visit Number: [id number] Discharge Date: 12/17/2024 12:07:00 PM ATTENTION: The Clinical Documentation Specialists (CDI) and [facility] Coding Staff appreciate your assistance in clarifying documentation. Please respond to the clarification below the line at the bottom and electronically sign. The CDI & [facility] Coding staff will review the response and follow-up if needed. Please note: Queries are made part of the Legal Health Record. If you have any questions, please contact the author of this message via ITS. Doctor Wang Rodriguez The patient had hypoxia and required supplemental oxygen. Based on this information and the findings below, is there an additional diagnosis that is clinically appropriate for this patient? Patient history/risk factors: Cancer, DM and HLD. Patient presented with significant chest pressure. Myocardial infarction was ruled out. Patient had an abdominal ultrasound completed as his pain was more epigastric in nature and was found to have symptomatic cholelithiasis. Underwent a laparoscopic cholecystectomy. Clinical Indicators: 12/15 CXR: Clinical indication: male, 69 years old with history of hypoxia. Retrocardiac infiltrate. Correlate for atelectasis or pneumonia. Minimal platelike atelectasis right costophrenic angle. Suspected small left pleural effusion. 12/16 IM: "He was found to have oxygen saturations of 88% overnight and was placed on nasal cannula." 12/15 Pulse ox: 90%-86%-94% Treatment: CXR ordered- see above result; O2 2-3LNC; IS 10x/hr while awake; IV Lasix 20mg x1 on 12/15 Is there an additional diagnosis that is clinically appropriate for this patient? [ x ] Acute pulmonary insufficiency following cholecystectomy [ ] No additional diagnosis/Not clinically significant [ ] Unable to determine [ ] Other, please specify MTDD
== END 2024-12-17 12:07 | disposition home or self-care (01) | DRG 417 ==
LOC: EC 07:10 → 6NMEDSUR 08:38 → OBSVTOIN 08:39 → 6NMEDSUR 11:22
PROVIDERS: ADMIT Family Medicine; ATTEND Family Medicine
DX: K80.00 Calculus of gallbladder with acute cholecystitis without obstruction (principal); J95.2 Acute pulmonary insufficiency following nonthoracic surgery; K82.A1 Gangrene of gallbladder in cholecystitis; E11.9 Type 2 diabetes mellitus without complications; Z95.3 Presence of xenogenic heart valve; K76.0 Fatty (change of) liver, not elsewhere classified; J98.11 Atelectasis; K82.8 Other specified diseases of gallbladder; K57.30 Diverticulosis of large intestine without perforation or abscess without bleeding; E78.5 Hyperlipidemia, unspecified; I35.0 Nonrheumatic aortic (valve) stenosis; Z79.82 Long term (current) use of aspirin; Z79.84 Long term (current) use of oral hypoglycemic drugs; Z79.899 Other long term (current) drug therapy; Z85.51 Personal history of malignant neoplasm of bladder; Z85.820 Personal history of malignant melanoma of skin; Z86.16 Personal history of COVID-19; Z87.891 Personal history of nicotine dependence; Z60.2 Problems related to living alone; Z28.21 Immunization not carried out because of patient refusal
CPT/HCPCS: 36415; 71046; 71275; 74018; 74175; 76705; 78226; 80048; 80053; 80061; 80076; 82150; 83036; 83690; 83735; 83880; 84145; 84484; 85025; 85379; 85610; 85730; 88304; 93005; 93306; 96365; 96375; 96376; 99285